=== PATIENT | male | born 1995 | race Caucasian/White ===

== ENCOUNTER 2019-03-19 19:09 | Inpatient (IN) | payer MEDICAID, SELFPAY ==
[2019-03-19] VITALS (9 sets, daily range): BP systolic 124–158; BP diastolic 70–86; PULSE 94–104; RESP 14–16; TEMP 37; O2SAT 96–99
--- NOTE | 2019-03-19 19:31 | CTR_ITS ---
PROCEDURE INFORMATION: Exam: CT Head Without Contrast Exam date and time: 03/19/2019 7:33 PM Age: 23 years old Clinical indication: Altered mental status/memory loss; Confusion or disorientation; Additional info: Ms change TECHNIQUE: Imaging protocol: Computed tomography of the head without contrast. Total DLP: 895.6 mGy-cm Radiation optimization: All CT scans at this facility use at least one of these dose optimization techniques: automated exposure control; mA and/or kV adjustment per patient size (includes targeted exams where dose is matched to clinical indication); or iterative reconstruction. COMPARISON: CT head wo con* [id number] 02/19/2018 7:50 PM FINDINGS: Brain: Normal. No hemorrhage. Unremarkable white matter. No mass effect. Ventricles: Normal. No ventriculomegaly. Bones/joints: Unremarkable. No acute fracture. Sinuses: Visualized sinuses are unremarkable. No fluid levels. Mastoid air cells: Visualized mastoid air cells are well aerated. Soft tissues: Unremarkable. CT/CT head wo con* [id number] IMPRESSION: No acute intracranial abnormality. Radiation Dose CTDIVOL = (mGy): DLP = 895.6 (mGy-cm)
--- NOTE | 2019-03-19 19:35 | ED_ITS ---
Entered by Deisy Godoy, acting as scribe for HPI - Psych General: Chief Complaint: Psychiatric Symptoms Stated Complaint: 96 hour hold Time Seen by Provider: 03/19/19 19:31 Source: police ([facility]) Mode of arrival: other ([facility]) History of Present Illness: HPI Narrative: 23 yo m came to the er in by [facility]'s office in handcuffs on a 96-hour hold. He was obviously intoxicated, on some sort of substance, and had evidently made suicidal statements, and threatened violence on his family. He presents agitated, not making sense while speaking, and somewhat combative. Review of Systems General: Reports: ROS unobtainable due to mental status PFSH ED PFSH: Statuses (acute, chronic, etc) shown below reflect problem list status as previously entered and may not be historically accurate Medical History (Updated 03/19/19 @ 22:53 by Ashwin Healy MD) Adjustment disorder (Acute) Depression (Acute) Fracture, ankle (Acute) Homicidal ideation (Acute) Incarceration (Acute) Methamphetamine abuse (Acute) Multiple head injury (Acute) Schizophrenia (Acute) Surgical History (Updated 03/19/19 @ 22:53 by Ashwin Healy MD) Hx of tonsillectomy (Acute) Family History (Updated 03/19/19 @ 22:53 by Ashwin Healy MD) Denies family history of Psychiatric illness Physical Exam Const: COMMON NORMALS: healthy appearing and alert EXAM LIMITATIONS: altered mental status GENERAL APPEARANCE: disheveled ORIENTATION/CONSCI OUSNESS: Yes awake and Yes confused HENMT: COMMON NORMALS: normocephalic, external ears normal and external nose normal; oral mucous membranes not moist HEAD & SCALP: normocephalic FACE & SINUS: normal facial exam NOSE: external nose normal EXTERNAL EAR: Yes external ears normal Eye: COMMON NORMALS: PERRL, EOMs intact bilaterally and conjunctivae normal CONJUNCTIVA: Yes conjunctivae normal PUPIL: Yes PERRL Chest: COMMONS NORMALS: inspection of chest normal Resp: COMMON NORMALS: clear to auscultation bilaterally EFFORT & INSPECTION: No respiratory distress AUSCULTATION: clear to auscultation bilaterally Cardio: COMMON NORMALS: regular rhythm and peripheral pulses 2+ throughout RATE: tachycardic RHYTHM: regular rhythm PERIPHERAL PULSES: pulses 2+ throughout GI: COMMON NORMALS: soft to palpation PALPATION: Yes soft Extremity: NARRATIVE EXTREMITY EXAM: No apparent injury Neuro: COMMON NORMALS: CN's II-XII intact bilaterally and moves all extremities SENSORIUM/ORIENTATION: Yes alert and Yes orientation impaired SPEECH: abnormal speech Details: other (Nonsensical at times) GAIT: Yes ataxic Procedures Intubation Time out performed: Yes sedative: Versed paralytic: Vecuronium Laryngoscope: Marck ET Tube Size: 8 Tube Secured Depth (cm): 24 Tube Secured Location: lips Tube Placement Confirmation: visualized tube passing through cords, equal breath sounds bilaterally and confirmation by capnometry Patient Tolerated Procedure: well Intubation Complications: none MDM - Psych Lab Data: Labs: Lab Results 03/19/19 03/19/19 03/19/19 Range/Units 20:35 20:35 20:35 WBC 4.5 (4.0-10.0) 10^3/ uL RBC 4.63 (4.1-5.3) 10^6/u L Hgb 13.6 (11.7-16.6) g/dL Hct 41.2 L (42.0-52.0) % MCV 89.0 (80-94) fL MCH 29.4 (28.0-34.0) pg MCHC 33.0 (30.0-36.0) g/dL RDW 11.8 L (12.1-15.1) % Plt Count 234 (130-400) 10^3/c mm MPV 9.4 (7.4-10.4) fL Neut % (Auto) 73.4 % Lymph % (Auto) 19.1 % Mitchell % (Auto) 6.9 % Eos % (Auto) 0.2 % Baso % (Auto) 0.4 % Neut # (Auto) 3.3 (1.8-7.7) 10^3/u L Lymph # (Auto) 0.9 (0.8-4.8) 10^3/u L Mitchell # (Auto) 0.3 (0.2-0.9) 10^3/u L Eos # (Auto) 0.0 (0.0-0.8) 10^3/u L Baso # (Auto) 0.0 (0.0-0.1) 10^3/u L Nucleated RBC % (a uto) 0 % Nucleated RBCs # 0.0 /100WBC Sodium 141 (136-145) mmol/L Potassium 3.3 L (3.5-5.1) mmol/L Chloride 103 (98-107) mmol/L Carbon Dioxide 25 (22-29) mmol/L Anion Gap 16.3 (5-19) BUN 15 (6-20) mg/dL Creatinine 1.2 (0.7-1.2) mg/dL GFR Calculation 74.4 L (90-130) mL/min Glucose 205 H (74-109) mg/dL Calcium 9.6 (8.5-10.5) mg/dL Total Bilirubin 0.4 (0.15-1.2) mg/dL AST 17 (0-40) U/L ALT 19 (0-41) U/L Alkaline Phosphata se 66 (40-130) IU/L Total Protein 6.8 (6.6-8.7) g/dL Albumin 4.5 (3.5-5.2) g/dL Globulin 2.3 (1.3-4.6) g/dL TSH 0.53 (0.27-4.20) uIU/ mL Urine Color (Yellow) Urine Appearance (CLEAR) Urine pH (5-7) Ur Specific Gravit y (1.005-1.030) Urine Protein (Negative) Urine Glucose (UA) (Normal) Urine Ketones (Negative) Urine Occult Blood (Negative) Urine Nitrate (Negative) Urine Bilirubin (NEGATIVE) Urine Urobilinogen (Negative) mg/dL Ur Leukocyte Anay ase (Negative) Salicylates < 0.3 L (3-10) mg/dL Urine Opiates Scre en (Negative) ng/mL Ur Barbiturates Sc reen (Negative) ng/mL Valproic Acid 2.8 L (50-100) mcg/mL Ur Phencyclidine S crn (Negative) ng/mL Ur Amphetamines Sc reen (Negative) ng/mL U Benzodiazepines Scrn (Negative) ng/mL Urine Cocaine Scre en (Negative) ng/mL U Marijuana (THC) Screen (Negative) ng/mL Ethyl Alcohol < 10 (0-10) mg/dL 03/19/19 03/19/19 Range/Units 22:40 22:40 WBC (4.0-10.0) 10^3/ uL RBC (4.1-5.3) 10^6/u L Hgb (11.7-16.6) g/dL Hct (42.0-52.0) % MCV (80-94) fL MCH (28.0-34.0) pg MCHC (30.0-36.0) g/dL RDW (12.1-15.1) % Plt Count (130-400) 10^3/c mm MPV (7.4-10.4) fL Neut % (Auto) % Lymph % (Auto) % Mitchell % (Auto) % Eos % (Auto) % Baso % (Auto) % Neut # (Auto) (1.8-7.7) 10^3/u L Lymph # (Auto) (0.8-4.8) 10^3/u L Mitchell # (Auto) (0.2-0.9) 10^3/u L Eos # (Auto) (0.0-0.8) 10^3/u L Baso # (Auto) (0.0-0.1) 10^3/u L Nucleated RBC % (a uto) % Nucleated RBCs # /100WBC Sodium (136-145) mmol/L Potassium (3.5-5.1) mmol/L Chloride (98-107) mmol/L Carbon Dioxide (22-29) mmol/L Anion Gap (5-19) BUN (6-20) mg/dL Creatinine (0.7-1.2) mg/dL GFR Calculation (90-130) mL/min Glucose (74-109) mg/dL Calcium (8.5-10.5) mg/dL Total Bilirubin (0.15-1.2) mg/dL AST (0-40) U/L ALT (0-41) U/L Alkaline Phosphata se (40-130) IU/L Total Protein (6.6-8.7) g/dL Albumin (3.5-5.2) g/dL Globulin (1.3-4.6) g/dL TSH (0.27-4.20) uIU/ mL Urine Color Yellow (Yellow) Urine Appearance Clear (CLEAR) Urine pH 5 (5-7) Ur Specific Gravit y 1.025 (1.005-1.030) Urine Protein Neg (Negative) Urine Glucose (UA) Norm (Normal) Urine Ketones Negative (Negative) Urine Occult Blood Neg (Negative) Urine Nitrate Negative (Negative) Urine Bilirubin 1+ H (NEGATIVE) Urine Urobilinogen 1 H (Negative) mg/dL Ur Leukocyte Anay ase Negative (Negative) Salicylates (3-10) mg/dL Urine Opiates Scre en Negative (Negative) ng/mL Ur Barbiturates Sc reen Negative (Negative) ng/mL Valproic Acid (50-100) mcg/mL Ur Phencyclidine S crn Negative (Negative) ng/mL Ur Amphetamines Sc reen Negative (Negative) ng/mL U Benzodiazepines Scrn Negative (Negative) ng/mL Urine Cocaine Scre en Negative (Negative) ng/mL U Marijuana (THC) Screen Negative (Negative) ng/mL Ethyl Alcohol (0-10) mg/dL Critical Care Time Critical Care Time: Critical Care Time: Yes Total Critical Care Time: 90 Attestation: This case had a high probability of a clinically significant, sudden, or life threatening deterioration of this patient's condition which required my full and direct attention, intervention and personal management. Discharge Plan Discharge Patient Disposition: Admitted As Inpatient Admit Provider: Ashwin Healy Discharge Date/Time: 03/19/19 23:40 Coding Level of Care Code ED Test Hole Driller for Hao Black The documentation recorded by the Walt luis Stephanie Lyn, accurately reflects the service I personally performed and the decisions made by , Primo Castillo DO Mar 19, 2019 19:09
[2019-03-19] MEDS: LORazepam 2 mg/mL INJ 1 mL IM (20:05)
[2019-03-19] MEDS: ziprasidone 20 mg/mL SDV IM (20:10)
[2019-03-19] MEDS: ziprasidone 20 mg/mL SDV (20:10)
[2019-03-19] MEDS: ketamine 100 mg/mL Inj 5 mL 500 MG (20:10)
[2019-03-19] MEDS: ketamine 100 mg/mL Inj 5 mL 200 MG IM (20:29)
[2019-03-19 20:58] LABS: Basophils % 0.4 %; Eosinophils % 0.2 %; Hematocrit 41.2 % (42.0-52.0); Hemoglobin 13.6 g/dL (11.7-16.6); Lymphocytes # 0.9 10^3/uL (0.8-4.8); Lymphocytes % 19.1 %; Mean Corpuscular Hemoglobin 29.4 pg (28.0-34.0); Mean Platelet Volume 9.4 fL (7.4-10.4); Monocytes # 0.3 10^3/uL (0.2-0.9); Monocytes % 6.9 %; Neutrophils # 3.3 10^3/uL (1.8-7.7); Neutrophils % 73.4 %; Nucleated Red Blood Cells % 0 %; Platelet Count 234 10^3/cmm (130-400); Red Blood Count 4.63 10^6/uL (4.1-5.3); Red Cell Distribution Width 11.8 % (12.1-15.1); White Blood Count 4.5 10^3/uL (4.0-10.0)
[2019-03-19 21:22] LABS: Alanine Aminotransferase 19 U/L (0-41); Albumin Level 4.5 g/dL (3.5-5.2); Alkaline Phosphatase 66 IU/L (40-130); Anion Gap 16.3 (5-19); Aspartate Amino Transferase 17 U/L (0-40); Blood Urea Nitrogen 15 mg/dL (6-20); Calcium 9.6 mg/dL (8.5-10.5); Carbon Dioxide 25 mmol/L (22-29); Chloride 103 mmol/L (98-107); Globulin 2.3 g/dL (1.3-4.6); Glomerular Filtration Rate 74.4 mL/min (90-130); Glucose 205 mg/dL (74-109); Potassium 3.3 mmol/L (3.5-5.1); Sodium 141 mmol/L (136-145); Thyroid Stimulating Hormone 0.53 uIU/mL (0.27-4.20); Total Bilirubin 0.4 mg/dL (0.15-1.2); Total Protein 6.8 g/dL (6.6-8.7)
[2019-03-19 21:23] LABS: Alcohol Level < 10 mg/dL (0-10); Salicylate < 0.3 mg/dL (3-10)
[2019-03-19] MEDS: midazolam 1 mg/mL INJ 2 mL 4 MG IVP (21:30)
[2019-03-19] MEDS: vecuronium 10 mg SDV IV ×2 (21:31→22:46)
[2019-03-19] MEDS: succinylcholine 20 mg/mL SDV 10mL 200 MG IVP (21:31)
[2019-03-19] MEDS: propofol 1,000 MG/100 ML INJ 7 MG IV (22:15)
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
[2019-03-19 23:07] LABS: Add Urine Microscopic? NO
[2019-03-19 23:12] LABS: Bilirubin Urine 1+ (NEGATIVE); Blood Urine Neg (Negative); Glucose Urine UA Norm (Normal); Ketones Urine Negative (Negative); Leukocyte Esterase Urine Negative (Negative); Nitrate Urine Negative (Negative); Protein Urine Neg (Negative); Specific Gravity, Urine 1.025 (1.005-1.030); Urine Appearance Clear (CLEAR); Urine Color Yellow (Yellow); Urobilinogen Urine 1 mg/dL (Negative); pH Urine 5 (5-7)
[2019-03-19 23:17] LABS: Amphetamines Screen Urine Negative (Negative); Barbiturates Screen Urine Negative (Negative); Benzodiazepines Screen Urine Negative (Negative); Cocaine Screen Urine Negative (Negative); Opiate Screen Urine Negative (Negative); PCP Screen Urine Negative (Negative); THC Screen Urine Negative (Negative)
[2019-03-19] MEDS: sodium chloride 0.9% 1,000 ML 150 ML IV (23:56)
[2019-03-20] VITALS (79 sets, daily range): BP systolic 95–139; BP diastolic 46–77; PULSE 59–131; RESP 11–18; TEMP 36.9–37.4; O2SAT 73–99; BMI 30.6
[2019-03-20] MEDS: propofol 1,000 MG/100 ML INJ 27.2 MG IV ×5 (00:15→21:19)
[2019-03-20] MEDS: enoxaparin 40 mg/0.4 mL Syringe SUBCUT ×2 (00:23→23:26)
[2019-03-20] MEDS: D5-NS 0.45% + KCL 20 mEq 20 MEQ/1,000 ML BAG 75 MEQ IV (00:23)
[2019-03-20 00:40] LABS: Valproic Acid Level 2.8 mcg/mL (50-100)
--- NOTE | 2019-03-20 03:34 | PC.NURSE ---
PATIENT BELONGINGS PAIR OF HOUSE SHOES LONGSLEEVE SHIRT PAJAMA PANTS UNDERWEAR DEODERANT SWEATER SHORT SLEEVE SHIRT UNDERWEAR PAJAMA PANTS ONE SOCK
[2019-03-20 04:21] LABS: Basophils % 0.4 %; Eosinophils % 0.3 %; Hematocrit 38.3 % (42.0-52.0); Hemoglobin 12.8 g/dL (11.7-16.6); Lymphocytes # 2.3 10^3/uL (0.8-4.8); Lymphocytes % 29.4 %; Mean Corpuscular HGB Conc 33.4 g/dL (30.0-36.0); Mean Corpuscular Volume 92.7 fL (80-94); Mean Platelet Volume 9.6 fL (7.4-10.4); Monocytes # 0.5 10^3/uL (0.2-0.9); Monocytes % 6.5 %; Neutrophils # 4.9 10^3/uL (1.8-7.7); Neutrophils % 63.3 %; Nucleated Red Blood Cells % 0 %; Platelet Count 244 10^3/cmm (130-400); Red Blood Count 4.13 10^6/uL (4.1-5.3); White Blood Count 7.8 10^3/uL (4.0-10.0)
[2019-03-20 04:35] LABS: Alanine Aminotransferase 17 U/L (0-41); Albumin Level 3.7 g/dL (3.5-5.2); Alkaline Phosphatase 53 IU/L (40-130); Anion Gap 14.4 (5-19); Aspartate Amino Transferase 20 U/L (0-40); Blood Urea Nitrogen 12 mg/dL (6-20); Carbon Dioxide 24 mmol/L (22-29); Chloride 108 mmol/L (98-107); Globulin 2.1 g/dL (1.3-4.6); Glomerular Filtration Rate 91.8 mL/min (90-130); Glucose 108 mg/dL (74-109); Potassium 3.4 mmol/L (3.5-5.1); Sodium 143 mmol/L (136-145); Total Bilirubin 0.5 mg/dL (0.15-1.2); Total Protein 5.8 g/dL (6.6-8.7)
--- NOTE | 2019-03-20 04:44 | XRR_ITS ---
PROCEDURE INFORMATION: Exam: XR Chest, 1 View Exam date and time: 03/20/2019 5:04 AM Age: 23 years old Clinical indication: Device placement; Ett placement (vent status); Additional info: Intubation TECHNIQUE: Imaging protocol: XR of the chest Views: 1 view. COMPARISON: No relevant prior studies available. FINDINGS: Tubes, catheters and devices: Three images labeled #1, #2 and #3 obtained showing positioning of the tip of the ET tube from 3.1 cm to 4.6 cm from the davina. Positioning of the end of the enteric tube in the lateral aspect of the proximal stomach following a mild loop in the fundus on all the images. Lungs: Clear lungs on all the images. Pleural space: No pleural fluid or pneumothorax. Heart/Mediastinum: No cardiomegaly. Bones/joints: Unremarkable. XR/XR chest 1V portable [id number] IMPRESSION: 1. Adequate positioning of the endotracheal and enteric tubes on all 3 images. 2. No acute cardiopulmonary disease.
--- NOTE | 2019-03-20 07:04 | PC.NURSE ---
SHIFT SUMMARY PT HAS BEEN SEDATED SINCE ARRIVAL FROM ER. FENTANYL WAS STARTED DUE TO PT STARTING TO THRASH IN BED. PT LUNGS REMAIN CLEAR. PT HAS BEEN TURNED PERIODICALLY. PT HAS PATENT IVS. PT HAS HAD ADEQUATE URINE OUTPUT.
--- NOTE | 2019-03-20 07:23 | PM.PN ---
Subjective Subjective: Interval history: Strain physical reviewed in detail. Patient is currently sedated on the ventilator. Medications: Reviewed: Yes Vitals/I&O/Wt Last Vital Signs Temp 98.4 F 03/20/19 04:00 Pulse 77 03/20/19 06:00 Resp 14 03/20/19 06:04 BP 96/51 03/20/19 06:00 Pulse Ox 97 03/20/19 06:00 03/19/19 03/20/19 03/20/19 22:59 06:59 14:59 Intake Total 177.5 / 177.5 Output Total 400 / 400 Balance -222.5 / -222.5 Weight last 48 hrs Weight 96.887 kg Weight 90.718 kg Physical Exam Narrative: EXAM NARRATIVE: General exam demonstrates a white male, sedated and on the ventilator Cardiovascular regular rate and rhythm without murmur Lungs clear Abdomen is soft with positive bowel sounds Extremities no cyanosis clubbing or edema Urinary Catheter Management^: Mina: Cath Placed During This Visit: no Data : 03/20/19 03:34 03/20/19 03:34 A&P Assessment and plan (1) Delirium due to multiple etiologies, acute, hyperactive: Likely substance use but cannot rule out his schizophrenia with decompensation. Sedation currently with fentanyl, propofol Status: Acute Code(s): F05 - Delirium due to known physiological condition (2) Suicidal ideation: Psychiatric consultation. Currently on a 96-hour hold Status: Acute Code(s): R45.851 - Suicidal ideations Additional A&P Information Secondary to severe agitation and threat to people around him he was intubated and sedated in the emergency department Mild hypokalemia History of polysubstance use DVT prophylaxis with Lovenox Attestations Medical Necessity Statement*: Needs continued hospitalization in the ICU secondary to severe delirium and agitation requiring intubation and sedation Critical Care Time: ICU care spent in reviewing multiple films, ventilator settings, sedation IV secondary to severe agitation requiring elevation Critical Care Time (min): 31 Coding Level of Care Code Acute Clothing Pattern Preparer for Hao Black Diagnoses Delirium due to multiple etiologies, acute, hyperactive F05 Suicidal ideation R45.851
[2019-03-20] MEDS: potassium chloride oral liq 20 mEq/15 mL UDC 40 MEQ OG-TUBE (08:25)
[2019-03-20] MEDS: folic acid 1 mg Tablet PO (08:25)
[2019-03-20] MEDS: multivitamin therapeutic Tablet 1 TAB PO (08:25)
[2019-03-20] MEDS: thiamine 100 mg Tablet PO (08:25)
[2019-03-20 16:19] LABS: ABG PCO2 38.4 mmHg (35-45); ABG PH Result 7.45 (7.35-7.45); Arterial Blood Gas Hematocrit 40.2 % (42-52); Base Excess ABG 2.6 mmol/L (-2.0-2.0); Blood Gas Allen Test Pos; Blood Gas Sample Site Radial, right; Blood Gas Sample Type Arterial; Blood Gas Tidal Volume 0.55; HCO3 ABG 26.7 mmol/L (22-26); Oxygen Device VENT
--- NOTE | 2019-03-20 20:30 | PC.NURSE ---
Valproic Acid Unable to crush Depakote ER tablets to place down OG. Checked with pharmacy for syrup and reports syrup is out of stock. Non-administered night dose.
[2019-03-20] MEDS: haloperidol 1 mg Tablet PO (21:09)
[2019-03-20] MEDS: trazodone 50 mg Tablet PO (21:25)
--- NOTE | 2019-03-20 22:40 | PC.NURSE ---
Pt at max dose of fentanyl and propofol. Kicking legs off side of bed, sitting up in bed attempting to pull out ET tube. Continues to bang arms on siderails of bed. Attempted calming techniques, discussion, reorientation and redirection. Nurse at bedside to prevent extubation and keep patient safe. Received orders for Versed drip by Dr. Healy.
[2019-03-21] VITALS (55 sets, daily range): BP systolic 101–146; BP diastolic 43–99; PULSE 79–115; RESP 14–31; TEMP 37.9–39.3; O2SAT 96–100
[2019-03-21] MEDS: propofol 1,000 MG/100 ML INJ 27.2 MG IV (00:15)
[2019-03-21] MEDS: LORazepam 2 mg/mL INJ 1 mL IVP (01:19)
--- NOTE | 2019-03-21 01:19 | XRR_ITS ---
PROCEDURE INFORMATION: Exam: XR Chest, 1 View Exam date and time: 03/21/2019 2:27 AM Age: 23 years old Clinical indication: Fever; Additional info: Fever while intubation TECHNIQUE: Imaging protocol: XR of the chest Views: 1 view. COMPARISON: CR XR chest 1V portable [id number] 03/20/2019 4:46 AM FINDINGS: Tubes, catheters and devices: Endotracheal tube above the davina adjacent to the level of the clavicles. nasogastric tube extends below the diaphragm although the location of the tip not identified as it is outside of the [id number]. Lungs: Opacity right retrocardiac region. Likely mild atelectasis. Followup suggested. Pleural space: Unremarkable. No pleural effusion. No pneumothorax. Heart/Mediastinum: Unremarkable. No cardiomegaly. Bones/joints: Unremarkable. XR/XR chest 1V portable [id number] IMPRESSION: Opacity right retrocardiac region. Likely mild atelectasis. Followup suggested.
[2019-03-21] MEDS: acetaminophen 650 mg Supp PR ×2 (01:20→05:37)
--- NOTE | 2019-03-21 01:22 | CTR_ITS ---
PROCEDURE INFORMATION: Exam: CT Head Without Contrast Exam date and time: 03/21/2019 7:37 AM Age: 23 years old Clinical indication: Patient HX: Possible seizure activity. Intubated. Manual ventilation. ; Additional info: Seizures TECHNIQUE: Imaging protocol: Computed tomography of the head without contrast. Total DLP: 886.27 mGy-cm Radiation optimization: All CT scans at this facility use at least one of these dose optimization techniques: automated exposure control; mA and/or kV adjustment per patient size (includes targeted exams where dose is matched to clinical indication); or iterative reconstruction. COMPARISON: CT head wo con* [id number] 03/19/2019 10:25 PM FINDINGS: Brain: Normal. No hemorrhage. Unremarkable white matter. No mass effect. Ventricles: Normal. No ventriculomegaly. Bones/joints: Unremarkable. No acute fracture. Sinuses: Visualized sinuses are unremarkable. No fluid levels. Mastoid air cells: Visualized mastoid air cells are well aerated. Soft tissues: Unremarkable. CT/CT head wo con* [id number] IMPRESSION: No acute intracranial abnormality. Radiation Dose CTDIVOL = (mGy): DLP = 886.27 (mGy-cm)
--- NOTE | 2019-03-21 02:17 | PC.NURSE ---
Physician had suspected symptoms displaying malignant hyperthermia. After contacting the hotline, physician now suspects propofol infusion syndrome and propofol was discontinued immediately. Received orders allowing titration above max limits of fentanyl and versed per protocol. Pt resting in bed sedated and on continues to be on ventilator without tremors of muscle rigidity. HR at baseline in the 80's. Continuous rectal temp monitor is now in place and 102.7. Ice water lavage preformed via OG tube at this time, cold clothes placed on patient. Urine is dark green.
[2019-03-21 02:29] LABS: Anion Gap 15.2 (5-19); Blood Urea Nitrogen 11 mg/dL (6-20); Calcium 8.7 mg/dL (8.5-10.5); Carbon Dioxide 23 mmol/L (22-29); Chloride 106 mmol/L (98-107); Glomerular Filtration Rate 103.7 mL/min (90-130); Glucose 102 mg/dL (74-109); Osmolality Calculated 286 mOsm/kg (285-295); Potassium 4.2 mmol/L (3.5-5.1); Sodium 140 mmol/L (136-145)
[2019-03-21 02:30] LABS: Lactic Acid 2.2 mmol/L (0.5-2.2)
--- NOTE | 2019-03-21 02:33 | ECG_ITS ---
Measurements Intervals T[place]o Rate: 90 P: 68 MS: 154 QRS: 82 QRSD: 84 T: 77 QT: 359 QTc: 439 SINUS RHYTHM Compared to ECG 02/19/2018 18:45:46 No significant changes Electronically Signed On 03-21-2019 15:43:25 OIL TREATER by Peter Daniel M.D. [email or web address]
[2019-03-21 02:37] LABS: ABG PH Result 7.42 (7.35-7.45); Arterial Blood Gas Hematocrit 39.4 % (42-52); Base Excess ABG 0.5 mmol/L (-2.0-2.0); Blood Gas Allen Test Pos; Blood Gas Sample Site Radial, right; Blood Gas Sample Type Arterial; Blood Gas Tidal Volume 0.55; Oxygen Device VENT; PO2 ABG 76.6 mmHg (80.0-100.0)
[2019-03-21 02:45] LABS: Creatine Phosphokinase 352 U/L (39-308)
--- NOTE | 2019-03-21 03:06 | PC.NURSE ---
At 0100 Pt sitting up in bed hand on ET tube, followed by kicking legs and biting tube at this time. Pt HR had accelerated to 190 during episode and shortly after returned to baseline. Pt is above hard limits on sedation per protocol. Pt temp found to be 102.8 axillary. After episode pt was calm lying still and noticed new onset of synchronized tremors or arms and legs and jaw which lasted briefly, a couple episodes observed and resembled hard chills. Physician was called for update and came to floor.
--- NOTE | 2019-03-21 03:33 | PM.EVENT ---
Event Note Event Note: I was called by the ICU nurse for agitation When I went to examine him Patient was having myoclonic limb jerking, masseter twitching, heart rate initially was 170s narrow complex tachycardia which came down to 100 on increasing Versed drip and 2 mg of Ativan IV Blood pressure 110/60mmhg Fever 102 which came down to 101.6 which were checked rectally Patient had good bilateral breath sounds, no active rhonchi His myoclonic jerking stopped after increasing midazolam and propofol and getting 2 mg of Ativan Skin does not show any signs of cellulitis Urine color green I reviewed his blood work, CT scan, chest imaging No obvious source of infection Plan Concern for malignant hyperthermia versus propofol infusion syndrome He received succinylcholine for induction but that was 24 hours ago, he has only received 1 dose of Haldol We will check CPK, BMP for hyperkalemia, lactic acid, blood cultures, urine culture, CT head Hold propofol Discontinue Haldol Keppra loading dose 1000 mg and continue Keppra 1000 every 12 IV If he becomes bradycardic with hypotension with severe acidosis, concerning propofol infusion syndrome he might need hemodialysis For now his blood pressure is stable, his fever is coming down, heart rate is better, will keep Levophed at the bedside, I called malignant hyperthermia hotline as well they recommended against dantrolene and recommended watching for propofol infusion syndrome worsening On portable chest x-ray there is bilateral lymphadenopathy with slight increase of right homogenous opacity of right side I would cover him with Zosyn for aspiration pneumonia for now
[2019-03-21] MEDS: piperacillin-tazobactam 3.375 GM in sodium chloride 0.9% (plus) 50 ML IV ×3 (03:47→20:18)
[2019-03-21] MEDS: D5-NS 0.45% + KCL 20 mEq 20 MEQ/1,000 ML BAG 75 MEQ IV ×2 (03:47→17:48)
[2019-03-21 05:01] LABS: Basophils % 0.1 %; Eosinophils % 0.2 %; Hematocrit 41.7 % (42.0-52.0); Hemoglobin 13.4 g/dL (11.7-16.6); Lymphocytes % 10.4 %; Mean Corpuscular HGB Conc 32.1 g/dL (30.0-36.0); Mean Corpuscular Hemoglobin 31.1 pg (28.0-34.0); Mean Corpuscular Volume 96.8 fL (80-94); Mean Platelet Volume 9.6 fL (7.4-10.4); Monocytes # 0.6 10^3/uL (0.2-0.9); Neutrophils % 83.1 %; Nucleated Red Blood Cells % 0 %; Platelet Count 192 10^3/cmm (130-400); Red Blood Count 4.31 10^6/uL (4.1-5.3); Red Cell Distribution Width 12.1 % (12.1-15.1); White Blood Count 9.6 10^3/uL (4.0-10.0)
[2019-03-21 05:37] LABS: Anion Gap 14.7 (5-19); Blood Urea Nitrogen 12 mg/dL (6-20); Calcium 8.9 mg/dL (8.5-10.5); Carbon Dioxide 22 mmol/L (22-29); Chloride 106 mmol/L (98-107); Glomerular Filtration Rate 82.2 mL/min (90-130); Glucose 102 mg/dL (74-109); Osmolality Calculated 284 mOsm/kg (285-295); Potassium 3.7 mmol/L (3.5-5.1); Sodium 139 mmol/L (136-145)
[2019-03-21] MEDS: folic acid 1 mg Tablet PO (09:41)
[2019-03-21] MEDS: multivitamin therapeutic Tablet 1 TAB PO (09:41)
[2019-03-21] MEDS: thiamine 100 mg Tablet PO (09:41)
--- NOTE | 2019-03-21 10:29 | PC.NURSE ---
weaning off fentynl and started on precedex at this time for weaning off vent and awaking pt to assess
--- NOTE | 2019-03-21 11:40 | PC.CHAP ---
Pastoral Care Encounter/Spiritual Assessment Type of Contact [] Declined resource management planner visit [] Patient/Family/Request visit [] Outpatient visit [] Follow-up visit [] Physician referral [] Code/Alert [] Routine visit [] Staff referral [] Actively dying [] Patient sleeping [] Family support [] [] Out of room [] Palliative care [] [] Receiving care in room [] Pre-surgical visit [] Trauma [] Long length of stay [] ICU visit [x ] Other: see summary Relational/Emotional Strength [] Patient feels connected with others/family/visitors/staff [] Distress [] Loneliness/isolation [] Abandonment Spirituality of Patient [] Person of Fabiana [] Attends Anabaptist of their Fabiana [] Believes in Prayer [] Reads Bible or Zoroastrian materials [] There are Spiritual issues to be addressed Health Claims Examiner Interventions [] Prayer [] Active listening [] Non-anxious presence [] Spiritual/emotional support [] Crisis/trauma care [] Spiritual counseling [] Bereavement support [] Provided bereavement packet [] Provided Bible/devotional materials [] Provided toy/stuffed animal, coloring book to patient or family member [] Provided Communion [] Anointing/[place] [] Salvation [] Completed spiritual assessment [] Other: Impact on Illness or Injury [] Angry [] Fearful [] Anxious [] Often cries [] Exhaustion [] Unable to work [] Unable to attend episcopalian [] Unable to walk/stand [] Unable to read [] Unable to drive [] Unable to eat/drink [] Unable to sleep [] Unable to be with family [] Patient intubated [] Other: Summary Health Claims Examiner advised by staff not to visit pt. He is on vent, Health Claims Examiner prayed outside of room. Time spent with patient 5 min.
--- NOTE | 2019-03-21 13:51 | PC.RESP ---
extubated pt extubated to room air, tolerated well
--- NOTE | 2019-03-21 14:49 | P.PN_ITS ---
Subjective Subjective: Interval history: Late entry. Unfortunately I did not enter a progress note yesterday although I saw him evaluated him and made medical decisions. Yesterday he was on the vent early in the morning, on sedation. Medications: Reviewed: Yes Vitals/I&O/Wt Last Vital Signs Temp 99.4 F 03/22/19 11:48 Pulse 90 03/22/19 14:00 Resp 20 H 03/22/19 14:00 BP 144/76 03/22/19 14:00 Pulse Ox 99 03/22/19 12:00 03/21/19 03/22/19 03/22/19 22:59 06:59 14:59 Intake Total 2460 / 2564 50 / 2614 1504 / 1504 Output Total 2800 / 2800 900 / 900 Balance 2460 / 2564 -2750 / -186 604 / 604 Weight last 48 hrs Weight 98.974 kg Weight 96.57 kg Physical Exam Narrative: EXAM NARRATIVE: General exam, sedated on the vent Cardiovascular regular in rhythm Lungs clear Abdomen is soft, positive bowel sounds Extremities no cyanosis clubbing or edema Urinary Catheter Management^: Mina: Cath Placed During This Visit: no Data : 03/22/19 04:07 03/22/19 04:07 Micro: Microbiology 03/21/19 03:50 Gram Stain - Final Sputum - Endotracheal Tube Aspirate Sputum Culture - Preliminary Staphylococcus aureus 03/21/19 02:30 Urine Culture - Preliminary Urine Catheterized 03/21/19 01:57 Blood Culture - Preliminary Blood NEGATIVE TO DATE 03/21/19 01:58 Blood Culture - Preliminary Blood NEGATIVE TO DATE A&P Assessment and plan (1) Delirium due to multiple etiologies, acute, hyperactive: Decompensated schizophrenia. Currently stable on Ativan, Precedex. Status: Acute Code(s): F05 - Delirium due to known physiological condition (2) Suicidal ideation: Psychiatric consultation. Currently on a 96-hour hold Status: Acute Code(s): R45.851 - Suicidal ideations Additional A&P Information Fever. Concern regarding aspiration. Placed on Zosyn. Chest x-ray did not show infiltrate. Urinalysis negative. 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
--- NOTE | 2019-03-21 14:56 | PC.NURSE ---
wasted fentyl and versed listed under iv flow sheet
--- NOTE | 2019-03-21 14:57 | PC.NURSE ---
This nurse witness Fentanyl snd versed wasted by Juan RN.
--- NOTE | 2019-03-21 15:31 | P.CONIM_ITS ---
Providers/Reason for Consult Consulting Physican/Specialty*: Vivek Winter M.D.. Psychiatry. Reason for Consult*: 96 hour hold. Question of psychosis and lethality. Attending Physician: Dane Lambert MD Primary Care Provider: Al Rincon Psych Consult HPI History of Present Illness Arnel Jeffries is a 23 year old male who presents to the ICU secondary to mental status changes and concerns for psychosis and lethality. He is currently fairly lethargic and unable to make a clear conversation. He is mostly saying [id number] statements like stating that this commercial underwriter is God, saying that he needs to get back to his God, reporting that he can't return to his family b ecause they are not who he thinks they are. He reports that they were several different God. He initially stated that he wanted to make sure everyone was out in the room and may be close the door but then once I did that there was nothing of real significance that he said but he clearly thought that his statements were of significance. I talked to him about the possibility of coming down to the neuropsych unit and he reported that he felt he was fine while he is clearly in an altered mental state. I did have the opportunity to speak to his mother and she shared with me that he has had a long history of addiction particularly the methamphetamine and he was about 15 years old on and off. She reports that he has not had any drugs to her knowledge over the past 3 weeks because he had been in alf and she picked him up from alf and he's been at the house mostly functioning like he is now such that he could not leave or do anything independently. So she feels fairly confident that he has not had any drugs. She endorses that he had a hospitalization here at [facility] back in April of last year and that he only took the medication for short period of time. She reports that since then he's been off of the medication. She reports that he has done well on the Depakote but she is unsure about other medications. She denies him ever being on Abilify that she is aware of as we discussed the hopeful goal of getting him on an injectable which she had been attempting or trying to get in place for some time without success. Per psychiatric evaluation he had 04/28/2018: History of Present Illness Date of Service: Apr 28, 2018 Chief Complaint: I don't know. I did note to do. I just came here. HPI: HPI: Arnel Jeffries is a 22-year-old man who has had multiple prior hospitalizations at this facility. The patient stated that he was having homicidal thoughts toward his girlfriend. They had gotten into an argument. He refuses to discuss the nature the argument. Records indicate that he had actually been incarcerated after getting into the argument with the girl. He got out of alf and had no place else to go. He complains of anxiety. He complains that he is depressed and having difficulty with eating and sleeping. He denied the presence of hallucinations. He had engaged in no self-defeating or self- injurious behavior. His cognition is impaired as evidenced by his inability to come up with a better plan for self-care than going to the hospital. Allergies: Coded Allergies: NO KNOWN ALLERGIES (Unverified , 07/27/16) Active Meds: Past Medical History Past Medical History: This is his third hospitalization at this facility in 2019. He was hospitalized from February 19 through March 13. He was then hospitalized from March 18 through March 23. He was diagnosed with schizophrenia?chronic, undifferentiated and methamphetamine abuse. He was discharged on Depakote 1000 mg twice a day and Haldol 5 mg twice a day. Review of Systems Psych: Complains of: Anxiety, Depression, Suicide ideation, Anger issues, Other (sirritability and anger to the point of homicidal idea Meds Current Medications: Current Medications Generic Name Dose Route Start Last Admin Trade Name Freq PRN Reason Stop Dose Admin Acetaminophen 650 mg 03/21/19 01:08 03/21/19 05:37 Tylenol GA 650 mg Q4H PRN Administration MILD PAIN OR INCR EASE TEMP Acetaminophen 1,000 mg 03/22/19 03:53 03/22/19 04:01 Tylenol PO 1,000 mg Q6H PRN Administration MILD PAIN OR INCR EASE TEMP Divalproex Sodium 2,000 mg 03/20/19 21:00 03/21/19 19:53 Depakote Er PO 2,000 mg BEDTIME DARIUS Administration Enoxaparin Sodium 40 mg 03/20/19 00:15 03/22/19 00:55 Lovenox SUBCUT Not Given Q24H [facility] Folic Acid 1 mg 03/20/19 09:00 03/21/19 09:41 Folic Acid PO 1 mg DAILY DARIUS Administration Potassium Chloride /Dextrose/Sod Cl 20 meq in 1,000 m ls @ 30 mls/hr 03/20/19 00:15 03/22/19 10:26 D5-Ns 0.45% + Sandip l 20 Meq IV 30 mls/hr .Q24H DARIUS Administration Levetiracetam 1,00 0 mg/ Sodium 110 mls @ 440 mls /hr 03/21/19 01:15 03/22/19 07:03 Chloride IV Infused Q12H DARIUS Infusion Piperacillin Sod/T azobactam 50 mls @ 12.5 mls /hr 03/21/19 04:00 03/22/19 07:03 Sod 3.375 gm/ So dium Chloride IV Infused Q8H DARIUS Infusion Protocol Lorazepam 2 mg 03/20/19 00:08 03/21/19 01:19 Ativan IVP 2 mg PRN PRN Administration WITHDRAWAL Protocol Lorazepam 2 mg 03/20/19 00:08 03/21/19 20:18 Ativan PO 2 mg Q4H PRN Administration WITHDRAWAL Protocol Lorazepam 1 mg 03/21/19 18:44 03/21/19 19:00 Ativan IVP 1 mg Q2H PRN Administration SEIZURES Multivitamins Ther apeutic 1 tab 03/20/19 09:00 03/21/19 09:41 Multivitamin Tab PO 1 tab DAILY DARIUS Administration Thiamine Mononitra te 100 mg 03/20/19 09:00 03/21/19 09:41 Vitamin B-1 PO 100 mg DAILY DARIUS Administration Trazodone HCl 50 mg 03/20/19 21:00 03/21/19 20:18 Desyrel PO 50 mg BEDTIME DARIUS Administration PFSH NPU PFSH: Statuses (acute, chronic, etc) shown below reflect problem list status as previously entered and may not be historically accurate Medical History (Updated 03/19/19 @ 22:53 by Ashwin Healy MD) Adjustment disorder (Acute) Depression (Acute) Fracture, ankle (Acute) Homicidal ideation (Acute) Incarceration (Acute) Methamphetamine abuse (Acute) Multiple head injury (Acute) Schizophrenia (Acute) Surgical History (Updated 03/19/19 @ 22:53 by Ashwin Healy MD) Hx of tonsillectomy (Acute) Family History (Updated 03/19/19 @ 22:53 by Ashwin Healy MD) Denies family history of Psychiatric illness Mental Status Exam MSE Comments: This is overweight and obese white male with a hospital gown on with limited mainly eye contact. No abnormal movements except for extreme psychomotor retardation. Semicooperative with exam in mild distress. Speech was decreased rate and volume and clearly confused most answers. Mood described as okay affect extremely subdued and lethargic. Thought process linear at times but mostly disorganized. Thought content: Patient denied suicidal or homicidal ideations, there were no delusions reportedly clear paranoia, persecutory and possibly hyper gnosticism delusions exist, he denied any auditory or visual hallucinations. Attention and concentration were impaired and memory was unreliable but none were formally tested. He is alert and oriented ?3. Insight and judgment and impulse control are significantly impaired. Vitals/I&O/Wt Last Vital Signs Pulse Ox 96 03/21/19 08:00 temperature 100.4, pulse 96, respirations 25, temperature 129/82. 03/21/19 03/22/19 03/22/19 22:59 06:59 14:59 Intake Total 2460 / 2564 50 / 2614 1504 / 1504 Output Total 2800 / 2800 300 / 300 Balance 2460 / 2564 -2750 / -186 1204 / 1204 Weight last 48 hrs Weight 98.974 kg Weight 96.57 kg Physical Exam Urinary Catheter Management^: Mina: Cath Placed During This Visit: no Data NPU Micro: Micro: Microbiology 03/21/19 03:50 Gram Stain - Final Sputum - Endotrac heal Tube Aspirate Sputum Culture - P reliminary Staphylococcus aureus 03/21/19 02:30 Urine Culture - Pr eliminary Urine Catheterize d 03/21/19 01:57 Blood Culture - Pr eliminary Blood NEGATIVE TO SAMUEL E 03/21/19 01:58 Blood Culture - Pr eliminary Blood NEGATIVE TO SAMUEL E Microbiology 03/21/19 03:50 Sputum - Endotracheal Tube Aspirate Gram Stain - Final 03/21/19 03:50 Sputum - Endotracheal Tube Aspirate Sputum Culture - Preliminary Staphylococcus aureus 03/21/19 02:30 Urine Catheterized Urine Culture - Preliminary 03/21/19 01:57 Blood Blood Culture - Preliminary NEGATIVE TO DATE 03/21/19 01:58 Blood Blood Culture - Preliminary NEGATIVE TO DATE A&P Additional A&P Information This is a 23-year-old white male with a long history of addiction and psychosis with likely some element of his psychosis being drug-induced versus withdrawal induced who presents to the ICU with mental status changes and inability to make informed consent. 1. Continue current medication. Except: 2. Restart Depakote ER 1000 mg by mouth daily at bedtime. 3. We'll likely start either Invega or Abilify with a plan to move towards an IM injection of either of those 2 medications. 4. Monitor for medical clearance and stability and consider transfer to the NPU. 5. Would be open to continued psychiatric care on the unit when medically stable. Attestations NPU Medical Necessity Statement*: N/A. Inpatient hospitalization necessity is deferred to the primary team, however hospitalization psychiatrically after medical stability is determined is medically necessary and the clinically appropriate intervention at this time. 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
[2019-03-21] MEDS: LORazepam 2 mg/mL INJ 1 mL 1 MG IVP ×3 (18:59→19:00)
[2019-03-21] MEDS: divalproex ER 500 mg Tablet (24H) 2000 MG PO (19:53)
[2019-03-21] MEDS: LORazepam 2 mg Tablet PO (20:18)
[2019-03-21] MEDS: trazodone 50 mg Tablet PO (20:18)
--- NOTE | 2019-03-21 20:24 | PC.NURSE ---
1900 bedside report rcvd at this time. precedex infusing at 0.3 mcg/kg/hr at this time. pt awake and arguing c staff but lethargic. sitter at bedside. security at bedside. vss per cm. rectal temp 100.4 at this time per monitor . adame in place c clear yellow urine . annabelle cho.
--- NOTE | 2019-03-21 20:27 | PC.NURSE ---
2029 pt noted to be increasingly fidgety . pt concerned he is going to of pneumonia . reassured pt that he is being treated c abx and he was being watched closely . sitter at bedside. pt concerned because sitter is watching him i explained that was her job. 2 mg po ativan given per apr. annabelle cho.
[2019-03-22] VITALS (24 sets, daily range): BP systolic 101–186; BP diastolic 44–101; PULSE 82–119; RESP 15–28; TEMP 36.9–38.3; O2SAT 98–100; BMI 30.4
[2019-03-22] MEDS: acetaminophen 500 mg Tablet 1000 MG PO (04:01)
[2019-03-22] MEDS: piperacillin-tazobactam 3.375 GM in sodium chloride 0.9% (plus) 50 ML IV ×2 (04:09→11:51)
[2019-03-22 04:43] LABS: Basophils % 0.2 %; Eosinophils # 0.1 10^3/uL (0.0-0.8); Eosinophils % 0.8 %; Hematocrit 40.7 % (42.0-52.0); Hemoglobin 13.1 g/dL (11.7-16.6); Lymphocytes % 9.1 %; Mean Corpuscular HGB Conc 32.2 g/dL (30.0-36.0); Mean Corpuscular Hemoglobin 29.3 pg (28.0-34.0); Mean Corpuscular Volume 91.1 fL (80-94); Monocytes # 0.4 10^3/uL (0.2-0.9); Neutrophils # 9.2 10^3/uL (1.8-7.7); Neutrophils % 85.4 %; Nucleated Red Blood Cells % 0 %; Platelet Count 215 10^3/cmm (130-400); Red Blood Count 4.47 10^6/uL (4.1-5.3); Red Cell Distribution Width 11.7 % (12.1-15.1); White Blood Count 10.8 10^3/uL (4.0-10.0)
[2019-03-22 05:00] LABS: Alanine Aminotransferase 18 U/L (0-41); Albumin Level 3.9 g/dL (3.5-5.2); Alkaline Phosphatase 73 IU/L (40-130); Anion Gap 15.1 (5-19); Aspartate Amino Transferase 28 U/L (0-40); Blood Urea Nitrogen 9 mg/dL (6-20); Calcium 9.3 mg/dL (8.5-10.5); Carbon Dioxide 25 mmol/L (22-29); Chloride 104 mmol/L (98-107); Globulin 2.6 g/dL (1.3-4.6); Glomerular Filtration Rate 82.2 mL/min (90-130); Glucose 113 mg/dL (74-109); Potassium 4.1 mmol/L (3.5-5.1); Sodium 140 mmol/L (136-145); Total Bilirubin 0.6 mg/dL (0.15-1.2); Total Protein 6.5 g/dL (6.6-8.7)
--- NOTE | 2019-03-22 06:43 | PC.NURSE ---
precedex off since 429 pt more coherent and calm. continues to be sexually inappropriate at times pt pulling on adame. adame removed per irving cho at this time. urinal provided sitter at bedside. annabelle cho.
--- NOTE | 2019-03-22 07:00 | XR_ITS ---
WS: [id number] CHEST XRAY TECHNIQUE: Portable chest. CLINICAL INFORMATION: Follow-up fever, history of respiratory failure COMPARISON: March 21, 2019 FINDINGS: Heart: Normal cardiac silhouette. Lungs: Lungs are clear. No consolidation or pleural effusion. Bones: Normal visualized bony structures. XR/XR chest 1V portable [id number] IMPRESSION: Normal chest
[2019-03-22 09:09] LABS: Influenza A by IFA Negative (Negative)
[2019-03-22 09:10] LABS: Influenza B by IFA Negative (Negative)
[2019-03-22] MEDS: D5-NS 0.45% + KCL 20 mEq 20 MEQ/1,000 ML BAG 30 MEQ IV (10:26)
--- NOTE | 2019-03-22 10:55 | PC.CHAP ---
Pastoral Care Encounter/Spiritual Assessment Type of Contact [] Declined awning erector visit [] Patient/Family/Request visit [] Outpatient visit [] Follow-up visit [] Physician referral [] Code/Alert [] Routine visit [] Staff referral [] Actively dying [x] Patient sleeping [] Family support [] [] Out of room [] Palliative care [] [] Receiving care in room [] Pre-surgical visit [] Trauma [] Long length of stay [x] ICU visit [] Other: Relational/Emotional Strength [] Patient feels connected with others/family/visitors/staff [] Distress [] Loneliness/isolation [] Abandonment Spirituality of Patient [] Person of Fabiana [] Attends Sikhism of their Fabiana [] Believes in Prayer [] Reads Bible or Taoist materials [] There are Spiritual issues to be addressed Stagecraft Professor Interventions [] Prayer [] Active listening [] Non-anxious presence [] Spiritual/emotional support [] Crisis/trauma care [] Spiritual counseling [] Bereavement support [] Provided bereavement packet [] Provided Bible/devotional materials [] Provided toy/stuffed animal, coloring book to patient or family member [] Provided Communion [] Anointing/Silex [] Salvation [] Completed spiritual assessment [] Other: Impact on Illness or Injury [] Angry [] Fearful [] Anxious [] Often cries [] Exhaustion [] Unable to work [] Unable to attend rastafari [] Unable to walk/stand [] Unable to read [] Unable to drive [] Unable to eat/drink [] Unable to sleep [] Unable to be with family [] Patient intubated [] Other: Summary Patient was sleeping at the time of visit. Visit attempted by Stagecraft Professor Jose Angel Herron Time spent with patient 3 minutes
[2019-03-22] MEDS: folic acid 1 mg Tablet PO (11:50)
[2019-03-22] MEDS: multivitamin therapeutic Tablet 1 TAB PO (11:51)
[2019-03-22] MEDS: thiamine 100 mg Tablet PO (11:51)
--- NOTE | 2019-03-22 12:23 | PC.NURSE ---
DIFFICULT TO COMMUNICATE WITH, WILL WHISPER TO NURSE WHEN TALKING. REFUSES TO USE ARMS AT TIMES D/T NERVE BEING DAMAGED REFUSES TO ANSWER IF SUICIDAL/HOMICIDAL. REFUSED LUNCH. PIID TO LEFT FOREARM DISCONTINUED D/T INFILTRATION.
--- NOTE | 2019-03-22 14:44 | PM.PN ---
Subjective Subjective: Interval history: Arnel reports he is eager to leave the hospital. He reports no significant cough. Nurse alerts me his temperature has improved. Medications: Reviewed: Yes Vitals/I&O/Wt Last Vital Signs Temp 99.4 F 03/22/19 11:48 Pulse 90 03/22/19 14:00 Resp 20 H 03/22/19 14:00 BP 144/76 03/22/19 14:00 Pulse Ox 99 03/22/19 12:00 03/21/19 03/22/19 03/22/19 22:59 06:59 14:59 Intake Total 2460 / 2564 50 / 2614 1504 / 1504 Output Total 2800 / 2800 900 / 900 Balance 2460 / 2564 -2750 / -186 604 / 604 Weight last 48 hrs Weight 98.974 kg Weight 96.57 kg Physical Exam Narrative: EXAM NARRATIVE: General exam no apparent distress Cardiovascular regular rate and rhythm Lungs clear Abdomen is soft with positive bowel sounds Extremities no cyanosis clubbing or edema Urinary Catheter Management^: Mina: Cath Placed During This Visit: no Data : 03/22/19 04:07 03/22/19 04:07 Micro: Microbiology 03/21/19 03:50 Gram Stain - Final Sputum - Endotracheal Tube Aspirate Sputum Culture - Preliminary Staphylococcus aureus 03/21/19 02:30 Urine Culture - Preliminary Urine Catheterized 03/21/19 01:57 Blood Culture - Preliminary Blood NEGATIVE TO DATE 03/21/19 01:58 Blood Culture - Preliminary Blood NEGATIVE TO DATE A&P Assessment and plan (1) Delirium due to multiple etiologies, acute, hyperactive: Decompensated schizophrenia. Currently stable on Ativan. He has been extubated. Status: Acute Code(s): F05 - Delirium due to known physiological condition (2) Suicidal ideation: Psychiatric consultation. Currently on a 96-hour hold Status: Acute Code(s): R45.851 - Suicidal ideations Additional A&P Information Fever. Concern yesterday regarding aspiration and Zosyn was started. Fever has defervesced. No infiltrate on x-ray. Change to Augmentin as he is extubated. Continue for 3 more days. 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
[2019-03-22] MEDS: LORazepam 2 mg/mL INJ 1 mL IVP ×2 (17:47→18:42)
--- NOTE | 2019-03-22 18:16 | PC.NURSE ---
LIZ HAS REFUSED DINNER & AMOXICILLIN. BECOMING AGITATED D/T HE DOESN'T WANT TO BE HERE & THAT HIS 96 HOUR HOLD SHOULD BE OVER. EDUCATED PT THAT WEEKENDS/HOLIDAYS DON'T COUNT TOWARDS HOLD. SITTER REMAINS AT BEDSIDE.
[2019-03-23 06:00] VITALS: BP 128/76; PULSE 85; RESP 17; TEMP 37.1; O2SAT 96
--- NOTE | 2019-03-23 08:25 | PC.NURSE ---
PT UNCOOPERATIVE, REFUSES TO ALLOW NURSE TO LISTEN TO LUNG, HEART AND BS. SN DOCUMENTED WNL PT APPEARS IN NO DISTRESS.
[2019-03-23] MEDS: folic acid 1 mg Tablet PO (08:56)
[2019-03-23] MEDS: multivitamin therapeutic Tablet 1 TAB PO (08:56)
[2019-03-23] MEDS: thiamine 100 mg Tablet PO (08:56)
[2019-03-23] MEDS: amoxicillin-clav 875-125 mg Tablet 1 TAB PO ×2 (08:56→20:17)
--- NOTE | 2019-03-23 11:45 | P.PN_ITS ---
Subjective Subjective: Interval history: Arnel is sleeping in bed when I arrived. He would nod his head to a few questions. He reported he was coughing some. No shortness of breath. Medications: Reviewed: Yes Vitals/I&O/Wt Last Vital Signs Temp 98.8 F 03/23/19 06:00 Pulse 85 03/23/19 06:00 Resp 17 03/23/19 06:00 BP 128/76 03/23/19 06:00 Pulse Ox 96 03/23/19 06:00 03/22/19 03/23/19 03/23/19 22:59 06:59 14:59 Intake Total 1160 / 2664 Output Total 550 / 1450 Balance 610 / 1214 Weight last 48 hrs Weight 98.974 kg Physical Exam Narrative: EXAM NARRATIVE: General exam, sedated on the vent Cardiovascular regular in rhythm Lungs clear Abdomen is soft, positive bowel sounds Extremities no cyanosis clubbing or edema Urinary Catheter Management^: Mina: Cath Placed During This Visit: no Data : 03/22/19 04:07 03/22/19 04:07 Micro: Microbiology 03/21/19 02:30 Urine Culture - Final Urine Catheterized 03/21/19 03:50 Gram Stain - Final Sputum - Endotracheal Tube Aspirate Sputum Culture - Preliminary Staphylococcus aureus A&P Assessment and plan (1) Delirium due to multiple etiologies, acute, hyperactive: Decompensated schizophrenia. He has transition to the neuropsychiatric unit. He appears calm currently. Status: Acute Code(s): F05 - Delirium due to known physiological condition (2) Suicidal ideation: Psychiatry managing Status: Acute Code(s): R45.851 - Suicidal ideations Additional A&P Information Fever. Concern regarding aspiration. Placed on Zosyn initially. Change to Augmentin. He refused 1 dose yesterday. No further fevers noted. Hypokalemia, resolved History of polysubstance use At this point he appears medically stable. I will sign off. Please call with any questions. 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
[2019-03-23 14:00] VITALS: BP 123/72; PULSE 92; RESP 20; TEMP 36.5; O2SAT 95
--- NOTE | 2019-03-23 18:28 | PC.NURSE ---
PT REFUSED SCHEDULED AUGMENTIN
[2019-03-23] MEDS: trazodone 50 mg Tablet PO (20:17)
[2019-03-23] MEDS: divalproex ER 500 mg Tablet (24H) 2000 MG PO (20:18)
--- NOTE | 2019-03-23 21:46 | P.PN_ITS ---
Subjective NPU Subjective: Interval history: Arnel presented today with little to no responses and acting fairly bizarre. It is unclear whether his behavior is intentional/volitional or out of his control. He reportedly has a history of sort of playing games, while on the unit. He has a reported history of hypersexual behavior and attention seeking. He mostly stared during questioning and mumbled under his breath impossible one-word answers. Mental Status Exam MSE Comments: This is overweight and obese white male with a hospital scrubs on with limited grooming and adequate eye contact. No abnormal movements except for extreme psychomotor retardation. Uncooperative with exam in occasional distress. Speech was limited and unaudible when it appeared he was going to speak. Mood not answered, affect extremely subdued and lethargic. Thought process unable to assess. Thought content:He demonstrated no self directed or outwardly directed aggression, he did not appear to be attending to internal stimuli. Attention and concentration were impaired and memory was unreliable but none were formally tested. He is alert to self. Insight and judgment and impulse control are significantly impaired. Vitals/I&O/Wt Last Vital Signs Temp 97.7 F 03/23/19 14:00 Pulse 92 03/23/19 14:00 Resp 20 H 03/23/19 14:00 BP 123/72 03/23/19 14:00 Pulse Ox 95 03/23/19 14:00 Weight last 48 hrs Weight 98.974 kg Physical Exam Urinary Catheter Management^: Mina: Cath Placed During This Visit: yes Urethral Indwelling: No Urinary Catheter Date of Insertion: 03/19/19 Urinary Catheter Time of Insertion: 22:50 Data NPU : 03/22/19 04:07 03/22/19 04:07 Micro: Microbiology 03/21/19 03:50 Gram Stain - Final Sputum - Endotracheal Tube Aspirate Sputum Culture - Preliminary Staphylococcus aureus 03/21/19 02:30 Urine Culture - Final Urine Catheterized Microbiology 03/21/19 03:50 Sputum - Endotracheal Tube Aspirate Gram Stain - Final 03/21/19 03:50 Sputum - Endotracheal Tube Aspirate Sputum Culture - Preliminary Staphylococcus aureus 03/21/19 02:30 Urine Catheterized Urine Culture - Final A&P Additional A&P Information This is a 23-year-old white male with a long history of addiction and psychosis with likely some element of his psychosis being drug-induced versus withdrawal induced who presents to the NPU with mental status changes and inability to make informed consent. 1. Continue current medication. Except: 2 We'll likely start either Invega or Abilify with a plan to move towards an IM injection of either of those 2 medications. 3. Continue one-to-one. 4. We will consider Ativan in the event this actually represents catatonia. Involuntary Hold Information 96 Hour Hold: 96 Hour Involuntary Admission: Yes 96 Hour Hold Ending Date: 03/25/19 96 Hour Hold Ending Time: 23:30 Attestations NPU Medical Necessity Statement*: Inpatient hospitalization is medically necessary and the clinically appropriate intervention at this time. He will be on the inpatient unit for over 2 midnights. We will monitor medications, consider a long-acting injectable and titrate to effect. Likely length of stay 4 to 6 da ys. 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
[2019-03-24 06:00] VITALS: BP 113/72; PULSE 97; RESP 19; TEMP 37.1; O2SAT 95
[2019-03-24] MEDS: folic acid 1 mg Tablet PO (10:55)
[2019-03-24] MEDS: thiamine 100 mg Tablet PO (10:55)
[2019-03-24] MEDS: amoxicillin-clav 875-125 mg Tablet 1 TAB PO ×3 (10:55→17:13)
[2019-03-24] MEDS: multivitamin therapeutic Tablet 1 TAB PO (10:55)
[2019-03-24 14:00] VITALS: BP 126/82; PULSE 58; RESP 16; TEMP 36.7; O2SAT 96
--- NOTE | 2019-03-24 17:55 | PM.NPN ---
Subjective NPU Subjective: Interval history: Arnel presented today initially requesting to speak to this telegraphic typewriter installer and then when this telegraphic typewriter installer obliged him he then proceeded as if he was not going to speak to this telegraphic typewriter installer. The conversation was very challenging. He was requiring great effort to get answers, limited ask what answer was desired, endorsed that something was a problem that he was having and then with a discussion was initiated about that problem he would say I have no idea what you're talking about. Then took a tray that he had not eaten from at this point and took the sandwich, stacked tater tots on top of it and took a bite of it but as he bit it he essentially emulated needing to vomit. He continued his gagging behavior. He asked whether he would be leaving. I explained the 96 hour process. But also expressed lack of clarity of whether he would be safe to be discharged. Mental Status Exam MSE Comments: This is overweight and obese white male with hospital scrubs on with limited grooming and adequate eye contact. No abnormal movements except for extreme psychomotor retardation. Uncooperative with exam in occasional distress. Speech was limited and unaudible at times when it appeared he was going to speak. Mood not answered, affect extremely subdued and lethargic. Thought process organized. Thought content:He demonstrated no self directed or outwardly directed aggression, he did not appear to be attending to internal stimuli. Attention and concentration were impaired and memory was unreliable but none were formally tested. He is alert to self. Insight and judgment and impulse control are significantly impaired. Vitals/I&O/Wt Last Vital Signs Temp 98.1 F 03/24/19 14:00 Pulse 58 L 03/24/19 14:00 Resp 16 03/24/19 14:00 BP 126/82 03/24/19 14:00 Pulse Ox 96 03/24/19 14:00 Physical Exam Urinary Catheter Management^: Mina: Cath Placed During This Visit: yes Urethral Indwelling: No Urinary Catheter Date of Insertion: 03/19/19 Urinary Catheter Time of Insertion: 22:50 Data NPU : 03/22/19 04:07 03/22/19 04:07 Micro: Microbiology 03/21/19 03:50 Gram Stain - Final Sputum - Endotracheal Tube Aspirate Sputum Culture - Final Staphylococcus aureus Microbiology 03/21/19 03:50 Sputum - Endotracheal Tube Aspirate Gram Stain - Final 03/21/19 03:50 Sputum - Endotracheal Tube Aspirate Sputum Culture - Final Staphylococcus aureus A&P Additional A&P Information This is a 23-year-old white male with a long history of addiction and psychosis with likely some element of his psychosis being drug-induced versus withdrawal induced who presents to the NPU with mental status changes and inability to make informed consent. 1. Continue current medication. Except: 2 We'll likely start either Invega or Abilify with a plan to move towards an IM injection of either of those 2 medications. Invega would likely be preferred given the lack of a need for overlap with oral medication. 3. Continue one-to-one. 4. We will consider Ativan in the event this actually represents catatonia. 5. His behaviors are very and it is unclear whether it is volitional or delirious behavior at this point. This could represent significant cluster B pathology. Involuntary Hold Information 96 Hour Hold: 96 Hour Involuntary Admission: Yes 96 Hour Hold Ending Date: 03/25/19 96 Hour Hold Ending Time: 23:30 Attestations NPU Medical Necessity Statement*: Inpatient hospitalization is medically necessary and the clinically appropriate intervention at this time. We will monitor medications, consider a long-acting injectable and titrate to effect. Likely length of stay 4 to 6 days. Coding Level of Care Code Acute Commission Sales Associate for [facility] [facility]
[2019-03-24] MEDS: divalproex ER 500 mg Tablet (24H) 2000 MG PO (21:09)
[2019-03-24] MEDS: trazodone 50 mg Tablet PO (21:09)
[2019-03-24 22:00] VITALS: BP 126/77; PULSE 59; RESP 18; TEMP 36.8; O2SAT 96
[2019-03-25] MEDS: thiamine 100 mg Tablet PO (08:39)
[2019-03-25] MEDS: folic acid 1 mg Tablet PO (08:39)
[2019-03-25] MEDS: amoxicillin-clav 875-125 mg Tablet 1 TAB PO ×2 (08:39→17:44)
[2019-03-25] MEDS: multivitamin therapeutic Tablet 1 TAB PO (08:39)
[2019-03-25 14:00] VITALS: BP 119/58; PULSE 57; RESP 20; TEMP 36.6; O2SAT 96
--- NOTE | 2019-03-25 15:41 | PM.NPN ---
Subjective NPU Subjective: Interval history: Arnel presented today fairly irritable and resistant to conversation. When I brought up his last methamphetamine use he got really angry and identified me talking about methamphetamine as the problem. Very much posturing aggressively. Stating his plan was to return home but not wanting to discuss his mother's desire that he not come home without treatment. We discussed the possibility of a 21-day hold which made him very angry. He continues to refuse medication. Mental Status Exam MSE Comments: This is overweight and obese white male with hospital scrubs on with limited grooming and adequate eye contact. No abnormal movements except for extreme psychomotor retardation. Uncooperative with exam in occasional distress. Speech was limited and increased rate and volume at times. Mood not answered, affect extremely irritable. Thought process organized. Thought content:He demonstrated no self directed, but showed outwardly directed aggression, he did not appear to be attending to internal stimuli. Attention and concentration were impaired and memory was unreliable but none were formally tested. He is alert to self. Insight and judgment and impulse control are significantly impaired. Vitals/I&O/Wt Last Vital Signs Temp 98 F 03/25/19 14:00 Pulse 61 03/25/19 20:15 Resp 15 03/25/19 20:15 BP 134/78 03/25/19 20:15 Pulse Ox 97 03/25/19 20:15 Physical Exam Urinary Catheter Management^: Mina: Cath Placed During This Visit: yes Urethral Indwelling: No Urinary Catheter Date of Insertion: 03/19/19 Urinary Catheter Time of Insertion: 22:50 Data NPU : 03/22/19 04:07 03/22/19 04:07 Micro: Microbiology 03/21/19 01:57 Blood Culture - Final Blood NO GROWTH AFTER 5 DAYS 03/21/19 01:58 Blood Culture - Final Blood NO GROWTH AFTER 5 DAYS Microbiology 03/21/19 01:57 Blood Blood Culture - Final NO GROWTH AFTER 5 DAYS 03/21/19 01:58 Blood Blood Culture - Final NO GROWTH AFTER 5 DAYS A&P Assessment and plan (1) Schizophrenia: 1. Continue current medication. Except: 2 We'll likely start either Invega with a plan to move towards an IM injection of either of those 2 medications. 3. Continue one-to-one. 4. We will consider Ativan in the event this actually represents catatonia. 5. His behaviors are very and it is unclear whether it is volitional or delirious behavior at this point. This could represent significant cluster B pathology. 6. Initiate 21 day hold. Will await mother's visit to see if she can impact situation towards treatment. Status: Acute Code(s): F20.9 - Schizophrenia, unspecified (2) Cluster B personality disorder: Status: Acute Code(s): F60.89 - Other specific personality disorders Involuntary Hold Information 96 Hour Hold: 96 Hour Involuntary Admission: Yes 96 Hour Hold Ending Date: 03/25/19 96 Hour Hold Ending Time: 23:30 Attestations NPU Medical Necessity Statement*: Inpatient hospitalization is medically necessary and the clinically appropriate intervention at this time. We will monitor medications, consider a long-acting injectable and titrate to effect. Likely length of stay 4 to 6 days. Coding Level of Care Code Acute Quality Analyst/Technical Writer for [employer] Diagnoses Schizophrenia F20.9 Cluster B personality disorder F60.89
--- NOTE | 2019-03-25 16:10 | PC.SOCIAL ---
Approached patient about discussion with physician and the request made by his mother. She asked that he put her on his HIPPA form so she could speak to the doctor and also speak to the HRS worker about his Medicaid. If he did this then she would come and pick him up after she got off work tomorrow. He said that she told him she would pick him up tonight when his 96 hour hold was up. He wanted to call her together and walked to the phone. He dialed the wrong number and became frustrated, I offered to retrieve the number for him. He instead told me to Fuck off, I'm not signing anything, you're just trying to get me to stay here longer . He then proceeded to loudly say Fuck you to me several times as he walked back to his room. Physician updated. Charge nurse Marilee was present during this incident as well as his 1:1 sitter.
[2019-03-25 20:15] VITALS: BP 134/78; PULSE 61; RESP 15; O2SAT 97
--- NOTE | 2019-03-25 20:16 | PC.NURSE ---
VITAL SIGNS PATIENT REFUSED TEMPERATURE.
[2019-03-25] MEDS: divalproex ER 500 mg Tablet (24H) 2000 MG PO (21:02)
[2019-03-25] MEDS: trazodone 50 mg Tablet PO (21:02)
[2019-03-26] MEDS: amoxicillin-clav 875-125 mg Tablet 1 TAB PO ×2 (11:48→17:02)
--- NOTE | 2019-03-26 11:56 | P.PN_ITS ---
Subjective NPU Subjective: Interval history: Arnel presents today reporting that he wants to go home. We discussed the fact that he is on 21-day hold right now and we had a very long discussion with his mom in the room and then with her out of the room about what it would take for him to be a candidate for discharge. We discussed the risks, benefits and alternatives of Invega including the ability for Invega to be moved to injectable and be taken every month to 3 months. And he understood and agreed to proceed as is documented in this note. Mental Status Exam MSE Comments: This is overweight versus obese white male with hospital scrubs on with limited grooming and adequate eye contact. No abnormal movements except for psychomotor retardation. more cooperative with exam today in occasional distress. Speech was slightly decreased rate and volume. Mood fine, affect irritable. Thought process organized. Thought content:He demonstrated no self directed, but showed outwardly directed aggression, he did not appear to be attending to internal stimuli. Attention and concentration were improving and memory was unreliable but none were formally tested. He is alert and oriented x 3. Insight and judgment and impulse control areimpaired. Vitals/I&O/Wt Last Vital Signs Temperature 98.7, pulse 73, respirations 18, pulse ox 97%, blood pressure 112/75. Physical Exam Urinary Catheter Management^: Mina: Cath Placed During This Visit: yes Urethral Indwelling: No Urinary Catheter Date of Insertion: 03/19/19 Urinary Catheter Time of Insertion: 22:50 Data NPU : 03/22/19 04:07 03/22/19 04:07 Micro: Microbiology 03/21/19 01:57 Blood Culture - Final Blood NO GROWTH AFTER 5 DAYS 03/21/19 01:58 Blood Culture - Final Blood NO GROWTH AFTER 5 DAYS Microbiology 03/21/19 01:57 Blood Blood Culture - Final NO GROWTH AFTER 5 DAYS 03/21/19 01:58 Blood Blood Culture - Final NO GROWTH AFTER 5 DAYS A&P Additional A&P Information This is a 23-year-old white male with a long history of addiction and psychosis with likely some element of his psychosis being drug-induced versus withdrawal induced who presents to the NPU with mental status changes and inability to make informed consent. 1. Continue current medication. Except: 2 Start Invega 6mg po qdaily 3. Continue one-to-one. 4. encourage individual, group and milieu therapy. 5. Refer to highest level of sober living after care to which he is willing to commit. Involuntary Hold Information 96 Hour Hold: 96 Hour Involuntary Admission: Yes 96 Hour Hold Ending Date: 03/25/19 96 Hour Hold Ending Time: 23:30 Attestations NPU Medical Necessity Statement*: Inpatient hospitalization is medically necessary and the clinically appropriate intervention at this time. We will monitor medications, consider a long-acting injectable and titrate to effect. Likely length of stay 4 to 6 days. Coding Level of Care Code Acute Acute Care Physician for [facility]
--- NOTE | 2019-03-26 12:56 | PC.SOCIAL ---
Court date for 21 day hold scheduled for March 29, 2019 at 2:30PM in the Probate Division of the [address] of [place], [place].
[2019-03-26] MEDS: paliperidone ER 6 mg Tablet PO (13:15)
[2019-03-26 14:00] VITALS: BP 112/75; PULSE 73; RESP 18; TEMP 37.1; O2SAT 97
[2019-03-26] MEDS: trazodone 50 mg Tablet PO (20:18)
[2019-03-26 20:34] VITALS: RESP 18
--- NOTE | 2019-03-26 20:34 | PC.NURSE ---
VITAL SIGNS PATIENT REFUSED VITAL SIGNS.
[2019-03-27 06:00] VITALS: BP 131/80; PULSE 51; RESP 15; O2SAT 90
--- NOTE | 2019-03-27 06:43 | PC.NURSE ---
VITAL SIGNS PATIENT REFUSED VITAL SIGNS.
[2019-03-27] MEDS: amoxicillin-clav 875-125 mg Tablet 1 TAB PO ×2 (08:09→17:04)
[2019-03-27] MEDS: paliperidone ER 6 mg Tablet PO (08:09)
[2019-03-27 14:00] VITALS: BP 137/92; PULSE 92; RESP 16; O2SAT 98
--- NOTE | 2019-03-27 19:09 | P.PN_ITS ---
Subjective NPU Subjective: Interval history: Arnel presents today focused on the plan and what he might be discharged. There are no significant issues reported today. He continues to be on one-on-one. We discussed the likelihood that we would give him the first injection tomorrow and see how he tolerates that. We agreed that if he continues to manage himself the way he is he gives himself the best chance of discharge in the next couple of days. Mental Status Exam MSE Comments: This is overweight versus obese white male with hospital scrubs on with adequate dress, grooming and eye contact. No abnormal movements except for psychomotor retardation. more cooperative with exam, in no acute distress. Speech was slightly decreased rate and volume. Mood ready to go home, affect less irritable. Thought process organized. Thought content:He denied and suicidal or homicidal ideations, he did not appear to be attending to internal stimuli. Attention and concentration were improving and memory was unreliable but none were formally tested. He is alert and oriented x 3. Insight and judg ment and impulse control are impaired, but improving. Vitals/I&O/Wt Last Vital Signs Temp 98.7 F 03/26/19 14:00 Pulse 92 03/27/19 14:00 Resp 16 03/27/19 14:00 BP 137/92 03/27/19 14:00 Pulse Ox 98 03/27/19 14:00 Physical Exam Urinary Catheter Management^: Mina: Cath Placed During This Visit: yes Urethral Indwelling: No Urinary Catheter Date of Insertion: 03/19/19 Urinary Catheter Time of Insertion: 22:50 Data NPU : 03/22/19 04:07 03/22/19 04:07 A&P Additional A&P Information This is a 23-year-old white male with a long history of addiction and psychosis with likely some element of his psychosis being drug-induced versus withdrawal induced who presents to the NPU with mental status changes and inability to make informed consent. 1. Continue current medication. May start the Invega injection tomorrow. 2. Continue one-to-one. 3. encourage individual, group and milieu therapy. 4. Refer to highest level of sober living after care to which he is willing to commit. Involuntary Hold Information 96 Hour Hold: 96 Hour Involuntary Admission: Yes 96 Hour Hold Ending Date: 03/25/19 96 Hour Hold Ending Time: 23:30 Attestations NPU Medical Necessity Statement*: Inpatient hospitalization is medically necessary and the clinically appropriate intervention at this time. We will monitor medications, consider a long-acting injectable and titrate to effect. Likely length of stay 4 to 6 days. Coding Level of Care Code Acute Supervisor Component Assembler for [facility]
--- NOTE | 2019-03-27 20:18 | PC.NURSE ---
THIS NURSE CARRYING CARTONS OF MILK TO DAYROOM FOR SNACK TIME, PT STATES TO OTHER MALE PTS NURSE APPROACHES OH YEAH THATS WHAT IM TALKING ABOUT, LETS GET SOME MILK FROM HER PT MAKES STATEMENT USING INAPPROPRIATE BODY LANGUAGE.
[2019-03-27 20:34] VITALS: BP 120/70; PULSE 66; RESP 18; O2SAT 97
[2019-03-27] MEDS: trazodone 50 mg Tablet PO (21:53)
[2019-03-28 06:00] VITALS: BP 125/75; PULSE 50; RESP 16; O2SAT 97; BMI 28.0
[2019-03-28] MEDS: amoxicillin-clav 875-125 mg Tablet 1 TAB PO ×2 (10:02→16:46)
[2019-03-28] MEDS: paliperidone ER 6 mg Tablet PO (10:02)
--- NOTE | 2019-03-28 12:36 | PM.NPN ---
Subjective NPU Subjective: Interval history: Arnel presented today continuing to have an eye presentation. Not appearing as irritable but continuing to have every question and every step of the process be questioned. He came into the office and reportedly did not want the one-to-one in the office with a period we discussed the importance of him getting to a point where he does not need a sitter for him to be discharged. He still without sitting. As he sat there slowly began to droop to point where clearly a well person with no definite knee restarting to have exposure of their pelvic region and he stated there without any reaction. I then asked if he was going to sit down and if he was going to pull his pants up or does allow him to fall to the ground at which time he adjusted. Questions I asked with your basic questions and conversation he needed to ask why the question being asked. He reports eating and sleeping okay. Mental Status Exam MSE Comments: This is overweight versus obese white male with hospital scrubs on with adequate dress, grooming and eye contact. No abnormal movements except for psychomotor retardation. more cooperative with exam, in no acute distress. Speech was decreased rate and volume. Mood was okay, affect less irritable but more resistant. Thought process organized. Thought content:He denied and suicidal or homicidal ideations, he did not appear to be attending to internal stimuli. Attention and concentration were improving and memory was unreliable but none were formally tested. He is alert and oriented x 3. Insight and judgment and impulse control are impaired, but improving. Vitals/I&O/Wt Last Vital Signs Temp 98.7 F 03/26/19 14:00 Pulse 50 L 03/28/19 06:00 Resp 16 03/28/19 06:00 BP 125/75 03/28/19 06:00 Pulse Ox 97 03/28/19 06:00 Weight last 48 hrs Weight 91.342 kg Physical Exam Urinary Catheter Management^: Mina: Cath Placed During This Visit: yes Urethral Indwelling: No Urinary Catheter Date of Insertion: 03/19/19 Urinary Catheter Time of Insertion: 22:50 Data NPU : 03/22/19 04:07 03/22/19 04:07 A&P Additional A&P Information This is a 23-year-old white male with a long history of addiction and psychosis with likely some element of his psychosis being drug-induced versus withdrawal induced who presents to the NPU with mental status changes and inability to make informed consent. 1. Continue current medication. Will give Invega injection today. 2. Continue one-to-one. 3. encourage individual, group and milieu therapy. 4. Refer to highest level of sober living after care to which he is willing to commit. 5. Continued assessment suggests very highly that there is a significant cluster B aspect to this. The large part of his difficulty of getting success is likely that he has borderline personality disorder. Involuntary Hold Information 96 Hour Hold: 96 Hour Involuntary Admission: Yes 96 Hour Hold Ending Date: 03/25/19 96 Hour Hold Ending Time: 23:30 Attestations NPU Medical Necessity Statement*: Inpatient hospitalization is medically necessary and the clinically appropriate intervention at this time. We will monitor medications, will give long-acting injectable today and likely give oral medication just for a few additional days. Likely length of stay 4 to 6 days Coding Level of Care Code Acute Legal Services Professional for [facility]
[2019-03-28 13:17] VITALS: BP 136/82; O2SAT 98
[2019-03-28 14:00] VITALS: BP 120/72; PULSE 54; RESP 17; O2SAT 98
--- NOTE | 2019-03-28 14:01 | PC.NURSE ---
refused to let this nurse obtain Temperature
[2019-03-28] MEDS: acetaminophen 325 mg Tablet 650 MG PO (16:47)
[2019-03-28 21:36] VITALS: BP 135/95; PULSE 65; RESP 19; TEMP 36.7; O2SAT 98
[2019-03-28] MEDS: trazodone 50 mg Tablet PO (21:48)
[2019-03-29 06:00] VITALS: BP 109/65; PULSE 74; RESP 19; TEMP 36.4; O2SAT 98
[2019-03-29] MEDS: amoxicillin-clav 875-125 mg Tablet 1 TAB PO ×2 (09:22→17:22)
[2019-03-29] MEDS: paliperidone ER 6 mg Tablet PO (09:22)
--- NOTE | 2019-03-29 10:59 | NPU.GN ---
Neuropsych Unit Group Topic: General Mood of Group Client did come into the group room for about 3 minutes and stood over this nurse while I was leading a group. He smiled and then told me that he was tired, and that he had to come to group in order to get rid of the 1:1, he then went back up the [address]ang way with 1:1 sitter
[2019-03-29] MEDS: paliperidone palmitate 234 mg Syringe IM (12:48)
[2019-03-29 14:00] VITALS: BP 122/72; PULSE 82; RESP 20; TEMP 36.2; O2SAT 98
--- NOTE | 2019-03-29 15:27 | PC.NURSE ---
Pt was asked if he wanted to talk to his mother on the phone and he stuck his finger up his nose and made a face at me which led me to believe that he did not want to want to talk to mom. He never did answer me.
--- NOTE | 2019-03-29 16:07 | PC.SOCIAL ---
21 day hold granted. If longer hold is required it will need to be filed prior to 04/14/2019.
--- NOTE | 2019-03-29 16:08 | PM.NPN ---
Subjective NPU Subjective: Interval history: Arnel presents today on the day of his 21-day hold choosing to defer to the treatment recommendations of the provider. This is largely due to his mother's position that if he does not follow the recommendations he will not be able to go home. It is her desire and agreement with this play writer that he be in at the very least outpatient rehab if not inpatient rehab and he continue on a long-acting injectable. He took the Invega injection today without incident. Mental Status Exam MSE Comments: This is overweight versus obese white male with hospital scrubs on with adequate dress, grooming and eye contact. No abnormal movements except for psychomotor retardation. more cooperative with exam, in no acute distress. Speech was decreased rate and volume. Mood was fine, affect slightly less irritable. Thought process organized. Thought content:He denied and suicidal or homicidal ideations, he did not appear to be attending to internal stimuli. Attention and concentration were improving and memory was unreliable but none were formally tested. He is alert and oriented x 3. Insight and judgment and impulse control are impaired, but improving. Vitals/I&O/Wt Last Vital Signs Temp 97.5 F L 03/29/19 06:00 Pulse 74 03/29/19 06:00 Resp 19 H 03/29/19 06:00 BP 109/65 03/29/19 06:00 Pulse Ox 98 03/29/19 06:00 Weight last 48 hrs Weight 91.342 kg Physical Exam Urinary Catheter Management^: Mina: Cath Placed During This Visit: yes Urethral Indwelling: No Urinary Catheter Date of Insertion: 03/19/19 Urinary Catheter Time of Insertion: 22:50 Data NPU : 03/22/19 04:07 03/22/19 04:07 A&P Additional A&P Information This is a 23-year-old white male with a long history of addiction and psychosis with likely some element of his psychosis being drug-induced versus withdrawal induced who presents to the NPU with mental status changes and inability to make informed consent. 1. Continue current medication. 2. Discontinue one-to-one. 3. encourage individual, group and milieu therapy. 4. Refer to highest level of sober living after care to which he is willing to commit. 5. Continued assessment suggests very highly that there is a significant cluster B aspect to this. The large part of his difficulty of getting success is likely that he has borderline personality disorder. Involuntary Hold Information 96 Hour Hold: 96 Hour Involuntary Admission: Yes 96 Hour Hold Ending Date: 03/25/19 96 Hour Hold Ending Time: 23:30 Attestations NPU Medical Necessity Statement*: Inpatient hospitalization is medically necessary and the clinically appropriate intervention at this time. We will monitor medications, will give long-acting injectable today and likely give oral medication just for a few additional days. Likely length of stay 2-4 days Coding Level of Care Code Acute Waiter/Waitress Cocktail Lounge for [facility] Black
[2019-03-29 22:00] VITALS: BP 116/76; PULSE 68; RESP 18; TEMP 36.6; O2SAT 98
[2019-03-30 06:00] VITALS: BP 115/70; PULSE 65; RESP 16; TEMP 36.6; O2SAT 97
[2019-03-30] MEDS: amoxicillin-clav 875-125 mg Tablet 1 TAB PO ×2 (08:43→17:53)
[2019-03-30] MEDS: paliperidone ER 6 mg Tablet PO (08:44)
[2019-03-30 13:22] VITALS: BP 117/66; PULSE 63; RESP 20; TEMP 36.6; O2SAT 97
--- NOTE | 2019-03-30 13:28 | P.PN_ITS ---
Subjective NPU Subjective: Interval history: Arnel presents today reporting that he is doing okay. He continues to be frustrated that he has to stay however due to decisions he made that prevented him from taking care of of his paperwork for insurance he is not able to get his second injection outside of the hospital at this point. Given his significant issues with med adherence as well as issues with aggression and things of that nature, we discussed keeping him until the second injection at least. He has not been causing problems recently and seems to be accepting that situation. I explained to him that Dr. 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 He is eating fine and sleeping okay. Mental Status Exam MSE Comments: This is overweight versus obese white male with hospital scrubs on with adequate dress, grooming and eye contact. No abnormal movements except for psychomotor retardation. more cooperative with exam, in no acute distress. Speech was decreased rate and volume, but improving slowly. Mood reported as OK, affect slightly less irritable. Thought process organized. Thought content:He denied and suicidal or homicidal ideations, he did not appear to be attending to internal stimuli. Attention and concentration were improving and memory was unreliable but none were formally tested. He is alert and oriented x 3. Insight and judgment and impulse control are impaired, but improving. Vitals/I&O/Wt Last Vital Signs Temperature 97.8, pulse 65, respirations 16, pulse ox 97%, blood pressure 115/70 . Physical Exam Urinary Catheter Management^: Mina: Cath Placed During This Visit: yes Urethral Indwelling: No Urinary Catheter Date of Insertion: 03/19/19 Urinary Catheter Time of Insertion: 22:50 Data NPU : 03/22/19 04:07 03/22/19 04:07 A&P Additional A&P Information This is a 23-year-old white male with a long history of addiction and psychosis with likely some element of his psychosis being drug-induced versus withdrawal induced who presents to the NPU with mental status changes and inability to make informed consent. 1. Continue current medication. 2. Discontinue one-to-one. 3. encourage individual, group and milieu therapy. 4. Refer to highest level of sober living after care to which he is willing to commit. 5. Continued assessment suggests very highly that there is a significant cluster B aspect to this. The large part of his difficulty of getting success is likely that he has borderline personality disorder. Involuntary Hold Information 96 Hour Hold: 96 Hour Involuntary Admission: Yes 96 Hour Hold Ending Date: 03/25/19 96 Hour Hold Ending Time: 23:30 Attestations NPU Medical Necessity Statement*: Inpatient hospitalization is medically necessary and the clinically appropriate intervention at this time. We will monitor medications and titrate as indicated Likely length of stay 2-4 days Coding Level of Care Code Acute Maintenance Data Analyst for Hao Black
[2019-03-30] MEDS: trazodone 50 mg Tablet PO (20:24)
[2019-03-30 21:33] VITALS: BP 101/56; PULSE 61; RESP 16; TEMP 36.7; O2SAT 98
--- NOTE | 2019-03-30 23:20 | PC.NURSE ---
Patient was observed sitting in the tub filled with water and wearing his clothes. Patient was redirected to get out of the tub and go back to his room. Staff gave patient clean dry clothes to change into.
[2019-03-31 06:00] VITALS: BP 105/58; PULSE 54; RESP 15; TEMP 36.7; O2SAT 98
[2019-03-31] MEDS: amoxicillin-clav 875-125 mg Tablet 1 TAB PO ×2 (08:30→16:52)
[2019-03-31] MEDS: paliperidone ER 6 mg Tablet PO (08:30)
--- NOTE | 2019-03-31 08:51 | P.PN_ITS ---
Subjective NPU Subjective: Interval history: The patient engages in massive passive aggression. He looks at the floor and answers in monosyllabic responses. He says he does not know what the medicines are doing for him. He does not appear to be psychotic per se. I review the text of affidavits in the record and he says, I do not know what you mean. In short, this patient is completely di sengaged from staff-patient treatment relationship. Medications: Reviewed: Yes Medication Review Details: The patient has no real insight into the relevance of injectable Invega to his situation. He seems to be distraught that he cannot control his situation. Mental Status Exam MSE Comments: The patient is found lying in bed after breakfast. He enters the room and leaves the door open. I suggested he close it to assure the privacy of his healthcare information. He deliberately moves the door to within an inch and a half of the jamb, making it possible for others to overhear our conversation. He has no answer to questions about his mood but it is plainly evident that he is disgruntled and not engaged in his care. Cognitive functions are difficult to assess but there is no evidence of memory impairment. Patient is bereft of insight and judgment. Yet does not seem like there has been much progress since yesterday. Vitals/I&O/Wt Last Vital Signs Temp 98.1 F 03/31/19 06:00 Pulse 54 L 03/31/19 06:00 Resp 15 03/31/19 06:00 BP 105/58 03/31/19 06:00 Pulse Ox 98 03/31/19 06:00 Physical Exam Urinary Catheter Management^: Mina: Cath Placed During This Visit: yes Urethral Indwelling: No Urinary Catheter Date of Insertion: 03/19/19 Urinary Catheter Time of Insertion: 22:50 Data NPU : 03/22/19 04:07 03/22/19 04:07 A&P Additional A&P Information Additional A&P Information This is a 23-year-old white male with a long history of addiction and psychosis with likely some element of his psychosis being drug-induced versus withdrawal induced who presents to the NPU with mental status changes and inability to make informed consent. 1. Continue current medication. 2. Discontinue one-to-one. 3. encourage individual, group and milieu therapy. 4. Refer to highest level of sober living after care to which he is willing to commit. 5. Continued assessment suggests very highly that there is a significant cluster B aspect to this. The large part of his difficulty achieving success likely arises from the florid borderline personality disorder. Involuntary Hold Information 96 Hour Hold: 96 Hour Involuntary Admission: Yes 96 Hour Hold Ending Date: 03/25/19 96 Hour Hold Ending Time: 23:30 Attestations NPU Medical Necessity Statement*: This patient is profoundly regressed. I anticipate 5-7 midnights additional stay. He is not competent for safe discharge and is completely unable to resume the risk of a less-restrictive millieu. Coding Level of Care Code Acute Drill Sharpener for Hao Black
[2019-03-31 14:00] VITALS: BP 110/47; PULSE 72; RESP 20; TEMP 36.7; O2SAT 98
[2019-03-31 19:49] VITALS: BP 109/65; PULSE 60; RESP 15; O2SAT 100
[2019-03-31] MEDS: trazodone 50 mg Tablet PO (20:33)
[2019-04-01 06:00] VITALS: BP 100/59; PULSE 47; RESP 15; O2SAT 96
[2019-04-01] MEDS: paliperidone ER 6 mg Tablet PO (08:39)
[2019-04-01] MEDS: amoxicillin-clav 875-125 mg Tablet 1 TAB PO ×2 (08:39→17:46)
[2019-04-01 13:50] VITALS: BP 108/68; PULSE 60; RESP 16; TEMP 36.7; O2SAT 97
--- NOTE | 2019-04-01 16:41 | P.PN_ITS ---
Subjective NPU Subjective: Interval history: I do not know what you mean. In short, this patient is completely disengaged from staff-patient treatment relationship. Medications: Medication Review Details: The patient has no real insight into the relevance of injectable Invega to his situation. He seems to be distraught that he cannot control his situation. Mental Status Exam MSE Comments: Mental Status Exam: Appearance: hygiene is fair; no gross neurological deficits., gait is unremarkable; AIMS=0 Speech: Speech is of normal rate and rhythm and easily understood. patients maintained at single word responses. Thought processes: Thought processes are concrete. Judgment is not adequate for safety without supervision. Associations: intact Psychotic processes: There is no indication of guarding or paranoia. There is no attention to the internal stimuli. Auditory and visual hallucinations are denied. Judgment: Insight is poor. Problem solving skills are notadequate for safety. Orientation: The patient is oriented to person, place time and situation. Memory: no deficits noted in immediate, intermediate, or remote spheres. Attention: The patient is alert and interpersonally engaged. Language: Verbalizations are coherent. Fund of knowledge: Fund of knowledge is adequate. Affect/Mood: Affect is consistent with a depressed mood. denies suicidal ideation Affective range is constricted Psychosis: perception difficult to assess; reality testing marginal Cognition: Patient Appearance: Disheveled/Poor Hygiene and No Eye Contact Level of Consciousness: Awake and Combative Patient Cognition Impaired: Yes Ability to Follow Directions: Poor Patient Orientation (long list): Person Hallucination Type: None Delusion Description: Not Present Thought Process: Blocking Affect: Affect Description: [place] Behavior: Patient Behavior: Cooperative Speech Pattern: Clear Vitals/I&O/Wt Last Vital Signs Temp 98.0 F 04/01/19 13:50 Pulse 60 04/01/19 13:50 Resp 16 04/01/19 13:50 BP 108/68 04/01/19 13:50 Pulse Ox 97 04/01/19 13:50 Physical Exam Urinary Catheter Management^: Mina: Cath Placed During This Visit: yes Urethral Indwelling: No Urinary Catheter Date of Insertion: 03/19/19 Urinary Catheter Time of Insertion: 22:50 Data NPU : 03/22/19 04:07 03/22/19 04:07 A&P Assessment and plan (1) Schizophrenia: 1. Continue current medication. Except: 2 We'll likely start either Invega with a plan to move towards an IM injection of either of those 2 medications. 3. Continue one-to-one. 4. We will consider Ativan in the event this actually represents catatonia. 5. His behaviors are very and it is unclear whether it is volitional or delirious behavior at this point. This could represent significant cluster B pathology. 6. Initiate 21 day hold. Will await mother's visit to see if she can impact situation towards treatment. Status: Acute Code(s): F20.9 - Schizophrenia, unspecified (2) Cluster B personality disorder: Status: Acute Code(s): F60.89 - Other specific personality disorders Additional A&P Information Additional A&P Information This is a 23-year-old white male with a long history of addiction and psychosis with likely some element of his psychosis being drug-induced versus withdrawal induced who presents to the NPU with mental status changes and inability to make informed consent. 1. Continue current medication. 2. Discontinue one-to-one. 3. encourage individual, group and milieu therapy. 4. Refer to highest level of sober living after care to which he is willing to commit. 5. Continued assessment suggests very highly that there is a significant cluster B aspect to this. The large part of his difficulty achieving success likely arises from the florid borderline personality disorder. Involuntary Hold Information 96 Hour Hold: 96 Hour Involuntary Admission: Yes 96 Hour Hold Ending Date: 03/25/19 96 Hour Hold Ending Time: 23:30 Attestations NPU Medical Necessity Statement*: patient will remain in the hospital another 21 days for the extent of his 21 day commitment. Coding Level of Care Code Acute Field Worker for Hao Black Diagnoses Schizophrenia F20.9 Cluster B personality disorder F60.89
[2019-04-01 20:14] VITALS: BP 120/78; PULSE 145; RESP 14; O2SAT 98
[2019-04-01] MEDS: trazodone 50 mg Tablet PO (21:08)
[2019-04-02 06:00] VITALS: BP 114/73; PULSE 63; RESP 15; O2SAT 97
[2019-04-02] MEDS: amoxicillin-clav 875-125 mg Tablet 1 TAB PO ×2 (09:01→17:36)
[2019-04-02] MEDS: paliperidone ER 6 mg Tablet PO (09:02)
--- NOTE | 2019-04-02 10:09 | PM.NPN ---
Subjective NPU Subjective: Interval history: Pt acknowledges the plan described below. He has no complaints and makes no requests. The plan of delayed discharge so that he can have his second injection is agreeable ot him. Mental Status Exam MSE Comments: Mental Status Exam: pt is encountered laying in bed asleep in mid-morning. No apparent distress. Easily aroused by verabl stimuli. Appearance: hygiene is fair; no gross neurological deficits.; AIMS=0 Speech: Speech is of normal rate and rhythm and easily understood. responses maintained at single word responses. Thought processes: Thought processes are concrete. Judgment is not adequate for safety without supervision. Associations: intact Psychotic processes: There is no indication of guarding or paranoia. There is no attention to the internal stimuli. Auditory and visual hallucinations are denied. Judgment: Insight is poor. Problem solving skills are not adequate for safety. Orientation: The patient is oriented to person, place time and situation. Memory: no deficits noted in immediate, intermediate, or remote spheres. Attention: The patient is alert and interpersonally engaged. Language: Verbalizations are coherent. Fund of knowledge: Fund of knowledge is adequate. Affect/Mood: Affect is flat with a self-repored euthymic mood. denies suicidal ideation Affective range is constricted Psychosis: perception difficult to assess; reality testing marginal Cognition: Patient Appearance: Disheveled/Poor Hygiene and No Eye Contact Level of Consciousness: Awake and Combative Patient Cognition Impaired: Yes Ability to Follow Directions: Poor Patient Orientation (long list): Person, Place and Time Hallucination Type: None Delusion Description: Not Present Thought Process: Blocking Affect: Affect Description: Flat Behavior: Patient Behavior: Cooperative Speech Pattern: Clear Vitals/I&O/Wt Last Vital Signs Temp 98.0 F 04/01/19 13:50 Pulse 63 04/02/19 06:00 Resp 15 04/02/19 06:00 BP 114/73 04/02/19 06:00 Pulse Ox 97 04/02/19 06:00 Physical Exam Urinary Catheter Management^: Mina: Cath Placed During This Visit: yes Urethral Indwelling: No Urinary Catheter Date of Insertion: 03/19/19 Urinary Catheter Time of Insertion: 22:50 Data NPU : 03/22/19 04:07 03/22/19 04:07 A&P Assessment and plan (1) Schizophrenia: 1. Continue current medication. Except: 2 We'll likely start either Invega with a plan to move towards an IM injection of either of those 2 medications. 3. Continue one-to-one. 4. We will consider Ativan in the event this actually represents catatonia. 5. His behaviors are very and it is unclear whether it is volitional or delirious behavior at this point. This could represent significant cluster B pathology. 6. Initiate 21 day hold. Will await mother's visit to see if she can impact situation towards treatment. Status: Acute Code(s): F20.9 - Schizophrenia, unspecified (2) Cluster B personality disorder: Status: Acute Code(s): F60.89 - Other specific personality disorders Additional A&P Information Additional A&P Information This is a 23-year-old white male with a long history of addiction and psychosis with likely some element of his psychosis being drug-induced versus withdrawal induced who presents to the NPU with mental status changes and inability to make informed consent. 1. Continue current medication. Plan is for him to remain here for 3 more nights for his second Invega injection and then to be discharged to home. 2. Discontinue one-to-one. 3. encourage individual, group and milieu therapy. 4. Refer to highest level of sober living after care to which he is willing to commit. 5. Continued assessment suggests very highly that there is a significant cluster B aspect to this. The large part of his difficulty achieving success likely arises from the florid borderline personality disorder. Involuntary Hold Information 96 Hour Hold: 96 Hour Involuntary Admission: Yes 96 Hour Hold Ending Date: 03/25/19 96 Hour Hold Ending Time: 23:30 Attestations NPU Medical Necessity Statement*: Plan is for him to remain here for 3 more nights for his second Invega injection and then to be discharged to home. Coding Level of Care Code Acute Press Operator [employer] for Hao Black Diagnoses Schizophrenia F20.9 Cluster B personality disorder F60.89
[2019-04-02 14:00] VITALS: BP 113/73; PULSE 71; RESP 18; TEMP 36.3; O2SAT 99
[2019-04-02 20:08] VITALS: BP 121/73; PULSE 61; RESP 16; O2SAT 97
[2019-04-02] MEDS: trazodone 50 mg Tablet PO (22:17)
[2019-04-03 06:00] VITALS: BP 115/71; PULSE 52; RESP 15; O2SAT 97
[2019-04-03] MEDS: amoxicillin-clav 875-125 mg Tablet 1 TAB PO ×2 (08:13→17:37)
[2019-04-03] MEDS: paliperidone ER 6 mg Tablet PO (08:13)
[2019-04-03 11:35] VITALS: BP 114/76; PULSE 93; O2SAT 98
--- NOTE | 2019-04-03 11:47 | P.PN_ITS ---
Subjective NPU Subjective: Interval history: He has no complaints and makes no requests. Mental Status Exam MSE Comments: Mental Status Exam: pt is encountered mid-morning. No apparent distress. HE is not attending group therapy and isolates hiumself except during meals. Appearance: hygiene is fair; no gross neurological deficits.; AIMS=0 Speech: Speech is of normal rate and rhythm and easily understood. responses maintained at single word responses. Thought processes: Thought processes are concrete. Judgment is not adequate for safety without supervision. Associations: intact Psychotic processes: There is no indication of guarding or paranoia. There is no attention to the internal stimuli. Auditory and visual hallucinations are denied. Judgment: Insight is poor. Problem solving skills are not adequate for safety. Orientation: The patient is oriented to person, place time and situation. Memory: no deficits noted in immediate, intermediate, or remote spheres. Attention: The patient is alert and interpersonally engaged. Language: Verbalizations are coherent. Fund of knowledge: Fund of knowledge is adequate. Affect/Mood: Affect is flat with a self-repored euthymic mood. denies suicidal ideation Affective range is constricted Psychosis: perception difficult to assess; reality testing marginal Cognition: Patient Appearance: Appropriate Level of Consciousness: Awake and Combative Patient Cognition Impaired: Yes Ability to Follow Directions: Poor Patient Orientation (long list): Person, Place and Time Hallucination Type: None Delusion Description: Not Present Thought Process: Appropriate Affect: Affect Description: Appropriate and [place] Behavior: Patient Behavior: Appropriate Speech Pattern: Appropriate Vitals/I&O/Wt Last Vital Signs Temp 97.3 F L 04/02/19 14:00 Pulse 93 04/03/19 11:35 Resp 15 04/03/19 06:00 BP 114/76 04/03/19 11:35 Pulse Ox 98 04/03/19 11:35 Physical Exam Urinary Catheter Management^: Mina: Cath Placed During This Visit: yes Urethral Indwelling: No Urinary Catheter Date of Insertion: 03/19/19 Urinary Catheter Time of Insertion: 22:50 Data NPU : 03/22/19 04:07 03/22/19 04:07 A&P Assessment and plan (1) Schizophrenia: 1. Continue current medication. Except: 2. continue 21 day hold. Second invega injection is due in two days. Plaement to be pursued at that time. Status: Acute Code(s): F20.9 - Schizophrenia, unspecified (2) Cluster B personality disorder: Status: Acute Code(s): F60.89 - Other specific personality disorders Additional A&P Information Additional A&P Information This is a 23-year-old white male with a long history of addiction and psychosis with likely some element of his psychosis being drug-induced versus withdrawal induced who presents to the NPU with mental status changes and inability to make informed consent. 1. continue 21 day hold. Second invega injection is due in two days. Plaement to be pursued at that time. 2. Discontinue one-to-one. 3. encourage individual, group and milieu therapy. 4. Refer to highest level of sober living after care to which he is willing to commit. 5. Continued assessment suggests very highly that there is a significant cluster B aspect to this. The large part of his difficulty achieving success likely arises from the florid borderline personality disorder. Involuntary Hold Information 96 Hour Hold: 96 Hour Involuntary Admission: Yes 96 Hour Hold Ending Date: 03/25/19 96 Hour Hold Ending Time: 23:30 Attestations NPU Medical Necessity Statement*: 2 more nights so that he can have his scheduled injection before discharge Coding Level of Care Code Acute Banking Services Officer for Hao Fwyadira Diagnoses Schizophrenia F20.9 Cluster B personality disorder F60.89
[2019-04-03 14:00] VITALS: BP 114/76; PULSE 93; RESP 15; O2SAT 98
[2019-04-03 21:02] VITALS: BP 107/60; PULSE 110; RESP 20; TEMP 36.7; O2SAT 96
[2019-04-03] MEDS: trazodone 50 mg Tablet PO (21:36)
[2019-04-04 06:00] VITALS: BP 115/69; PULSE 56; RESP 17; TEMP 36.9; O2SAT 96
[2019-04-04] MEDS: amoxicillin-clav 875-125 mg Tablet 1 TAB PO ×2 (08:49→16:50)
[2019-04-04] MEDS: paliperidone ER 6 mg Tablet PO (08:49)
[2019-04-04 13:54] VITALS: BP 95/50; PULSE 72; RESP 18; TEMP 36.5; O2SAT 98
--- NOTE | 2019-04-04 15:14 | PM.NPN ---
Subjective NPU Subjective: Interval history: patient prepared for discharge when guardian consents Mental Status Exam MSE Comments: Mental Status Exam: . No apparent distress. HE is not attending group therapy and isolates hiumself except during meals. Appearance: hygiene is fair; no gross neurological deficits.; AIMS=0 Speech: Speech is of normal rate and rhythm and easily understood. responses maintained at single word responses. Thought processes: Thought processes are concrete. Judgment is not adequate for safety without supervision. Associations: intact Psychotic processes: There is no indication of guarding or paranoia. There is no attention to the internal stimuli. Auditory and visual hallucinations are denied. Judgment: Insight is poor. Problem solving skills are not adequate for safety. Orientation: The patient is oriented to person, place time and situation. Memory: no deficits noted in immediate, intermediate, or remote spheres. Attention: The patient is alert and interpersonally engaged. Language: Verbalizations are coherent. Fund of knowledge: Fund of knowledge is adequate. Affect/Mood: Affect is flat with a self-reported euthymic mood. denies suicidal ideation Affective range is constricted Psychosis: perception difficult to assess; reality testing marginal Vitals/I&O/Wt Last Vital Signs Temp 97.7 F 04/04/19 13:54 Pulse 72 04/04/19 13:54 Resp 18 04/04/19 13:54 BP 95/50 04/04/19 13:54 Pulse Ox 98 04/04/19 13:54 Weight last 48 hrs Weight 94.892 kg Physical Exam Urinary Catheter Management^: Mina: Cath Placed During This Visit: yes Urethral Indwelling: No Urinary Catheter Date of Insertion: 03/19/19 Urinary Catheter Time of Insertion: 22:50 Data NPU : 03/22/19 04:07 03/22/19 04:07 A&P Additional A&P Information A&P Assessment and plan (1) Schizophrenia: 1. Continue current medication. Except: 2. continue 21 day hold. Second invega injection is due in two days. Plaement to be pursued at that time. Status: Acute Code(s): F20.9 - Schizophrenia, unspecified (2) Cluster B personality disorder: Status: Acute Code(s): F60.89 - Other specific personality disorders Additional A&P Information Additional A&P Information This is a 23-year-old white male with a long history of addiction and psychosis with likely some element of his psychosis being drug-induced versus withdrawal induced who presents to the NPU with mental status changes and inability to make informed consent. 1. continue 21 day hold. Second invega injection is due in two days. Plaement to be pursued at that time. 2. Discontinue one-to-one. 3. encourage individual, group and milieu therapy. 4. Refer to highest level of sober living after care to which he is willing to commit. 5. Continued assessment suggests very highly that there is a significant cluster B aspect to this. The large part of his difficulty achieving success likely arises from the florid borderline personality disorder. Involuntary Hold Information 96 Hour Hold: 96 Hour Involuntary Admission: Yes 96 Hour Hold Ending Date: 03/25/19 96 Hour Hold Ending Time: 23:30 Attestations NPU Medical Necessity Statement*: Pt to remain in the hospital 1-2 more nights to facilitate placement Coding Level of Care Code Acute It Architecture Analyst for Hao Black
[2019-04-04] MEDS: trazodone 50 mg Tablet PO ×2 (20:06→21:19)
[2019-04-04 21:31] VITALS: BP 109/66; PULSE 88; RESP 20; TEMP 36.7; O2SAT 97
[2019-04-05 06:00] VITALS: BP 97/61; PULSE 54; RESP 16; TEMP 36.8; O2SAT 97
[2019-04-05] MEDS: paliperidone ER 6 mg Tablet PO (08:12)
[2019-04-05] MEDS: amoxicillin-clav 875-125 mg Tablet 1 TAB PO (08:12)
--- NOTE | 2019-04-05 11:42 | P.DS_ITS ---
Diagnoses at Discharge Discharge Diagnosis (1) Schizophrenia: Status: Acute (2) Cluster B personality disorder: Status: Acute Reason for Visit Reason for Visit: Reason For Visit: acute mental status change;overdose;substance abus Hospital Course Hospital Course Arnel Jeffries is a 23 year old male who presents to the ICU secondary to mental status changes and concerns for psychosis and lethality. He is currently fairly lethargic and unable to make a clear conversation. He is mostly saying [id number] statements like stating that this typewriter ribbon winder is God, saying that he needs to get back to his God, reporting that he can't return to his family because they are not who he thinks they are. He reports that they were several different God. He initially stated that he wanted to make sure everyone was out in the room and may be close the door but then once I did that there was nothing of real significance that he said but he clearly thought that his statements were of significance. I talked to him about the possibility of coming down to the neuropsych unit and he reported that he felt he was fine while he is clearly in an altered mental state. I did have the opportunity to speak to his mother and she shared with me that he has had a long history of addiction particularly the methamphetamine and he was about 15 years old on and off. She reports that he has not had any drugs to her knowledge over the past 3 weeks because he had been in correction and she picked him up from correction and he's been at the house mostly f unctioning like he is now such that he could not leave or do anything independently. So she feels fairly confident that he has not had any drugs. She endorses that he had a hospitalization here at [facility] back in April of last year and that he only took the medication for short period of time. She reports that since then he's been off of the medication. She reports that he has done well on the Depakote but she is unsure about other medications. She denies him ever being on Abilify that she is aware of as we discussed the hopeful goal of getting him on an injectable which she had been attempting or trying to get in place for some time without success. Admission MSE: This is overweight versus obese white male with hospital scrubs on with adequate dress, grooming and eye contact. No abnormal movements except for psychomotor retardation. more cooperative with exam, in no acute distress. Speech was decreased rate and volume. Mood was fine, affect slightly less irritable. Thought process organized. Thought content: He denied and suicidal or homicidal ideations, he did not appear to be attending to internal stimuli. Attention and concentration were improving and memory was unreliable but none were formally tested. He is alert and oriented x 3. Insight and judgment and impulse control are impaired, but improving. This is a 23-year-old white male with a long history of addiction and psychosis with likely some element of his psychosis being drug-induced versus withdrawal induced who presents to the ICU with mental status changes and inability to make informed consent. 1. Continue current medication. Except: 2. Restart Depakote ER 1000 mg by mouth daily at bedtime. 3. We'll likely start either Invega or Abilify with a plan to move towards an IM injection of either of those 2 medications. 4. Monitor for medical clearance and stability and consider transfer to the NPU. 5. Would be open to continued psychiatric care on the unit when medically stable. The treating psychiatrist made the decision to not restart Depakote. The patient was not ready for discharge at the end of his [address] granted another 21 days to facilitate stabilization on Invega and continuation of antibiotic for staph pneumonia. Both of these treatment were beneficial and he was discharged to placement. Involuntary Hold Information 96 Hour Hold: 96 Hour Involuntary Admission: Yes 96 Hour Hold Ending Date: 03/25/19 96 Hour Hold Ending Time: 23:30 Physical Exam Urinary Catheter Management^: Mina: Cath Placed During This Visit: yes Urethral Indwelling: No Urinary Catheter Date of Insertion: 03/19/19 Urinary Catheter Time of Insertion: 22:50 Discharge Data Data Completed and Pending: Completed Studies During Hospitalization Category Date Time Status CT head wo con* 7 0450 Urgent Cat Scan 03/19/19 19:[address] head wo con* 7 0450 Urgent Cat Scan 03/21/19 01:22 Completed XR chest 1V [place] ble [id number] NOW Exams 03/20/19 04:44 Completed XR chest 1V carrillo ble [id number] Routine Exams 03/22/19 07:00 Completed XR chest 1V carrillo ble [id number] Stat Exams 03/21/19 01:19 Completed Vitals: Last Vital Signs Temp 98.2 F 04/05/19 06:00 Pulse 54 L 04/05/19 06:00 Resp 16 04/05/19 06:00 BP 97/61 04/05/19 06:00 Pulse Ox 97 04/05/19 06:00 Discharge Plan Discharge Patient Disposition: Home, Self-Care Condition: Stable Prescriptions: New trazodone 50 mg Tablet 50 mg PO BEDTIME Qty: 30 RF: 4 paliperidone 6 mg Tablet Extended Release 24hr 6 mg PO DAILY Qty: 30 RF: 4 Discontinued benztropine 0.5 mg tablet 1 mg PO BID RF: 0 hydroxyzine pamoate 50 mg capsule 1 mg PO BREAD ROOM HAND RF: 0 divalproex 500 mg tablet extended release 24 hr 2,000 mg PO BREAD ROOM HAND RF: 0 haloperidol 5 mg tablet 1 mg PO BEDTIME RF: 0 trazodone 50 mg tablet 50 mg PO BEDTIME RF: 0 Discharge Orders: Discharge Order (Routine); Ordered 04/05/19 Ordered By: Tai Huff Referrals: [facility] [Outside] Activity Restrictions/Additional Instructions: Follow up as a walk in at [facility], walk in hours are from 7:30AM- 2:00PM, first come, first seen. Once you do this assessment you will be referred for appropriate services, such as medication management and therapy. Until you are established with a medication provider here you will need to go to your primary care provider or Urgent Care for your monthly Invega Sustenna injection. [address] [place] [address] Discharge Attestations NPU Time Spent in Discharge Care*: less than 30 min Coding Level of Care Code Acute Maternity Nurse for Chg Fwd Diagnoses Schizophrenia F20.9 Cluster B personality disorder F60.89
[2019-04-05 12:01] VITALS: BP 97/61; PULSE 54; RESP 16; TEMP 36.8; O2SAT 97
[2019-04-05] MEDS: paliperidone palmitate 156 mg Syringe IM (15:01)
--- NOTE | 2019-04-05 15:01 | PC.NURSE ---
GARRETT SUSTENNA 156 MG INJECTION GIVEN ORDERED. GIVEN IN LEFT DELTOID. WILL CONT TO MONITOR INJECTION SITE FOR ANY REDNESS, SWELLING, OR IRRITATION. LOT [id number] EXP 05/2019
== END 2019-04-05 17:45 | disposition home or self-care (01) | DRG 885 ==
LOC: ER 19:36 → ICU 23:00 → NP 03-22 19:41
PROVIDERS: Admitting Provider Internal Medicine; Emergency Provider Emergency Medicine; Family Provider Physician Assistant Medical; PCP Physician Assistant Medical; Visit Provider Internal Medicine
DX: F20.9 Schizophrenia, unspecified (principal); R45.851 Suicidal ideations; F43.20 Adjustment disorder, unspecified; F32.9 Major depressive disorder, single episode, unspecified; F15.10 Other stimulant abuse, uncomplicated; E87.6 Hypokalemia; E66.9 Obesity, unspecified; Z68.29 Body mass index [BMI] 29.0-29.9, adult; F60.89 Other specific personality disorders; Z78.1 Physical restraint status
CPT/HCPCS: 12345; 36415; 51702; 70450; 71045; 80048; 80053; 80164; 80307; 81003; 82550; 82803; 83605; 84443; 85025; 87040; 87070; 87077; 87086; 87186; 87205; 87804; 93005; 94002; 94003; 94799; 96365; 96366; 96372; 96374; 96375; 99285; J0330; J1650; J1953; J2060; J2250; J2543; J2704; J3010; J3411; J3486; J3490; J7030

== ENCOUNTER 2019-03-19 19:09 | Emergency (ER) | payer MEDICAID, SELFPAY | END 2019-03-19 23:40 | disposition admitted as inpatient to this hospital (09) | LOC: ER 04-08 07:50 | PROVIDERS: Emergency Provider Emergency Medicine; Family Provider Physician Assistant Medical; PCP Physician Assistant Medical | DX: R41.82 Altered mental status, unspecified (principal); F91.8 Other conduct disorders | CPT/HCPCS: 12345; 31500; 51702; 70450; 80053; 80164; 80307; 81003; 84443; 85025; 94002; 96365; 96366; 96372; 96374; 96375; 99285; 99291; J0330; J2060; J2250; J2704; J3486; J3490 ==

== ENCOUNTER → 2019-06-04 07:45 | Outpatient (BNVA) | payer MEDICAID, SELFPAY | PROVIDERS: Family Provider Physician Assistant Medical; PCP Physician Assistant Medical; Visit Provider Psychiatry & Neurology Psychiatry | DX: F20.9 Schizophrenia, unspecified (principal) | CPT/HCPCS: 99204 ==

== ENCOUNTER → 2019-09-01 07:37 | Outpatient (BNVA) | payer MEDICAID, SELFPAY | PROVIDERS: Family Provider Physician Assistant Medical; PCP Physician Assistant Medical; Visit Provider Counselor Mental Health | DX: F20.9 Schizophrenia, unspecified (principal); F78 Other intellectual disabilities | CPT/HCPCS: 90832 ==

== ENCOUNTER → 2019-09-03 07:58 | Outpatient (BNVA) | payer MEDICAID, SELFPAY | PROVIDERS: Family Provider Physician Assistant Medical; PCP Physician Assistant Medical; Visit Provider Psychiatry & Neurology Psychiatry | DX: F78 Other intellectual disabilities (principal); F60.89 Other specific personality disorders; F20.9 Schizophrenia, unspecified; F15.21 Other stimulant dependence, in remission | CPT/HCPCS: 99214 ==

== ENCOUNTER → 2019-09-15 07:53 | Outpatient (BNVA) | payer MEDICAID, SELFPAY | PROVIDERS: Family Provider Physician Assistant Medical; PCP Physician Assistant Medical; Visit Provider Counselor Mental Health | DX: F78 Other intellectual disabilities (principal); F20.9 Schizophrenia, unspecified; F15.21 Other stimulant dependence, in remission; F60.89 Other specific personality disorders | CPT/HCPCS: 90832 ==

== ENCOUNTER → 2019-10-01 13:28 | Outpatient (BNVA) | payer MEDICAID, SELFPAY | PROVIDERS: Family Provider Physician Assistant Medical; PCP Physician Assistant Medical; Visit Provider Psychiatry & Neurology Psychiatry | DX: F20.9 Schizophrenia, unspecified (principal); F60.89 Other specific personality disorders; F15.21 Other stimulant dependence, in remission; F33.1 Major depressive disorder, recurrent, moderate; F41.1 Generalized anxiety disorder | CPT/HCPCS: 96372; 99213 ==

== ENCOUNTER → 2019-11-01 07:46 | Outpatient (BNVA) | payer MEDICAID, SELFPAY | PROVIDERS: Family Provider Physician Assistant Medical; PCP Physician Assistant Medical; Visit Provider Counselor Mental Health | DX: F20.9 Schizophrenia, unspecified (principal); F15.21 Other stimulant dependence, in remission | CPT/HCPCS: 90832 ==

== ENCOUNTER → 2019-11-08 07:47 | Outpatient (BNVA) | payer MEDICAID, SELFPAY | PROVIDERS: Family Provider Physician Assistant Medical; PCP Physician Assistant Medical; Visit Provider Counselor Mental Health | DX: Z03.89 Encounter for observation for other suspected diseases and conditions ruled out (principal) | CPT/HCPCS: 90791 ==

== ENCOUNTER → 2019-11-12 08:52 | Outpatient (BNVA) | payer MEDICAID, SELFPAY | PROVIDERS: Family Provider Physician Assistant Medical; PCP Physician Assistant Medical; Visit Provider Counselor Mental Health | DX: F15.21 Other stimulant dependence, in remission (principal); Z03.89 Encounter for observation for other suspected diseases and conditions ruled out | CPT/HCPCS: 90834 ==

== ENCOUNTER → 2019-11-26 07:41 | Outpatient (BNVA) | payer MEDICAID, SELFPAY | PROVIDERS: Family Provider Physician Assistant Medical; PCP Physician Assistant Medical; Visit Provider Psychiatry & Neurology Psychiatry | DX: F20.9 Schizophrenia, unspecified (principal); F60.89 Other specific personality disorders; F15.21 Other stimulant dependence, in remission | CPT/HCPCS: 99213 ==

== ENCOUNTER → 2019-12-01 12:30 | Outpatient (BNVA) | payer MEDICAID, SELFPAY | PROVIDERS: Family Provider Physician Assistant Medical; PCP Physician Assistant Medical; Visit Provider Family Medicine | DX: Z20.828 Contact with and (suspected) exposure to other viral communicable diseases (principal); R05 Cough | CPT/HCPCS: 87400; 87635 ==

== ENCOUNTER 2020-04-14 12:43 | Outpatient (CLI) | payer MEDICAID, SELFPAY ==
--- NOTE | 2020-04-14 12:45 | US_ITS ---
WS: [id number] ULTRASOUND ABDOMEN CLINICAL INFORMATION: R10.9 - Unspecified abdominal pain COMPARISON: None. FINDINGS: Technically difficult examination due to bowel gas. Liver Size: Normal. Craniocaudal length: 16.1 cm. Echogenicity: Normal. Surface nodularity: None. Mass (size and location): None. Bile ducts Intrahepatic ducts: Normal. Common bile duct diameter: 0.4 cm. Gallbladder Normal. Gallstones: None. Gallbladder sludge: None. Gallbladder wall thickening: None. Pericholecystic fluid: None. Sonographic Perez sign: Absent. Pancreas Normal as visualized. Spleen Splenomegaly: None. Craniocaudal length: 12.6 cm. Right kidney: Normal. Hydronephrosis: None. Size: 11.3 cm x 6.1 cm x 5.4 cm Left kidney: Normal. Hydronephrosis: None. Size: 10.7 cm x 6.2 cm x 6.3 cm. Abdominal aorta and IVC Visualized portions are normal. Ascites: None. US/US abdomen complete* [id number] IMPRESSION: Normal abdominal ultrasound
== END 2020-04-14 12:44 | disposition home or self-care (01) ==
LOC: RAD 12:45
PROVIDERS: PCP Physician Assistant Medical; Visit Provider Nurse Practitioner Family
DX: R10.9 Unspecified abdominal pain (principal)
CPT/HCPCS: 76700

== ENCOUNTER 2021-04-23 16:01 | Inpatient (IN) | payer MEDICAID, SELFPAY ==
[2021-04-23 16:59] VITALS: BP 146/93; PULSE 75; RESP 16; TEMP 36.4; O2SAT 95; BMI 29.1
[2021-04-23 17:06] VITALS: BP 146/93; PULSE 75; RESP 18; O2SAT 95
--- NOTE | 2021-04-23 17:18 | ED_ITS ---
HPI - General Adult General: Chief complaint: Psychiatric Symptoms Stated complaint: Mental Evaluation Time Seen by Provider: 04/23/21 17:06 History of Present Illness: HPI: [25]yo patient w/ hx of bipolar disorder presenting for acute psychosis and inabiltiy to take care of self. Patient was recently started on medicine for his psychotic outbreaks. However the medicine has not done much. Patient was then told to go to the emergency room for mood stabilization. Per patient's father, patient has been running around the house without wearing close and does not want to do anything. On arrival, the patient is AAOx3 and cooperative with my evaluation. No focal complaints of chest pain, shortness of breath, palpitations, N/V, focal GI/ complaints. Currently denies SI/HI. No complaints of hallucinations. Onset: acute Duration: ongoing Location: home Severity: severe Associated symptoms: Deny chest pain, dyspnea, nausea, rash, palpitations or vomiting Review of Systems Const: Denies: fever(s) or chills Eyes: Denies: change in vision ENMT: Denies: mouth pain Card: Denies: chest pain or palpitations Resp: Denies: dyspnea or non-productive cough GI: Denies: abdominal pain, nausea, vomiting or diarrhea : Denies: dysuria Musc: Denies: extremity pain Skin/Breast: Denies: rash or new lesions Neuro: Denies: weakness in extremities Psych: Reports: other (Normal mood) Mikel/Lymph: Denies: easy bruising [facility] ED PFSH: Medical History (Updated 04/23/21 @ 17:18 by Alexis Larios MD) Abdominal pain Adjustment disorder Cough Depression Diminished intellectual function syndrome Fracture, ankle Homicidal ideation Incarceration Methamphetamine abuse Multiple head injury Obesity (BMI 30.0-34.9) Schizophrenia Surgical History Hx of tonsillectomy Family History Denies family history of Psychiatric illness Social History Smoking and tobacco status: former smoker Quit status (tobacco): has quit using tobacco Year quit tobacco: 2019 Second hand smoke exposure: No Smoking risk assessment/counseling performed?: No Current gender identity: Male Physical Exam Const: COMMON NORMALS: alert HENMT: COMMON NORMALS: atraumatic HEAD & SCALP: atraumatic MOUTH: moist mucous membranes not abnormal Eye: COMMON NORMALS: EOMs intact bilaterally and conjunctivae normal CONJUNCTIVA: Yes conjunctivae normal Neck/C-Spine: COMMON NORMALS: full ROM and supple Resp: COMMON NORMALS: normal respiratory effort and clear to auscultation bilaterally AUSCULTATION: clear to auscultation bilaterally Cardio: COMMON NORMALS: regular rate RATE: regular rate GI: COMMON NORMALS: Soft to palpation and non-tender PALPATION: Yes Soft to palpation Extremity: COMMON NORMALS: full ROM Neuro: SENSORIUM/ORIENTATION: Yes alert MOTOR EXAM: No Abnormal motor strength present and Other motor observations present (no focal motor deficits) Psych: COMMON NORMALS: speech normal SPEECH: Yes normal speech MOOD & AFFECT: Yes euthymic mood Course Vital Signs: Vital signs: Vital Signs Temperature 97.5 F L 04/26/21 06:00 Pulse Rate 75 04/26/21 06:00 Respiratory Rate 16 04/26/21 06:00 Blood Pressure 109/65 04/26/21 06:00 Pulse Oximetry 98 04/26/21 06:00 MDM - General Adult Medical Decision Making [25]yo patient w/ hx of bipolar disorder presenting for acute psychosis and inability to take care of self. HDS, exam within normal limit Thoughts are linear and organized, and the patient has no AH/VH, or HI. Clinically the patient displays no overt toxidrome; they are well appearing, with low suspicion for toxic ingestion given history and exam. Symptoms unlikely 2/2 anemia, hypothyroidism, infection, or ICH. Workup: CBC, BMP, salicylate/tylenol, UDS Lab findings: wnl [6:30pm] On reassessment, labs and workup wnl. Patient is hemodynamically stable with no acute medical complaints. Case discussed with psychiatric provider [] at [facility] psych inpatient with recommendation for admission Disposition: Psych Lab Data : 04/23/21 17:25 04/23/21 17:25 Laboratory Results WBC 5.8 10^3/uL (4.0-10.0) 04/23/21 17:25 RBC 5.25 10^6/uL (4.1-5.3) 04/23/21 17:25 Hgb 15.6 g/dL (11.7-16.6) 04/23/21 17:25 Hct 45.5 % (42.0-52.0) 04/23/21 17: MCV 86.7 fl (80-94) 04/23/21 17:25 MCH 29.7 pg (28.0-34.0) 04/23/21 17: MCHC 34.3 g/dL (30.0-36.0) 04/23/21: RDW 11.4 % (12.1-15.1) L 04/23/21 17: Plt Count 250 10^3/cmm (130-400) 04/23/21: MPV 10.1 fL (7.4-10.4) 04/23/21 17: Neut % (Auto) 65.5 % 04/23/21 17: Lymph % (Auto) 26.4 % 04/23/21 17: [place] % (Auto) 6.4 % 04/23/21 17:25 Eos % (Auto) 0.7 % 04/23/21 17:25 Baso % (Auto) 0.7 % 04/23/21 17: Neut # (Auto) 3.79 10^3/uL (1.8-7.7) 04/23/21: Lymph # (Auto) 1.5 10^3/uL (0.8-4.8) 04/23/21 17:25 [place] # (Auto) 0.4 10^3/uL (0.2-0.9) 04/23/21:25 Eos # (Auto) 0.0 10^3/uL (0.0-0.8) 04/23/21:25 Baso # (Auto) 0.0 10^3/uL (0.0-0.1) 04/23/21: Nucleated RBC % (auto) 0 % 04/23/21: Nucleated RBCs # 0.0 /100WBC 04/23/21 17:25 Sodium 141 mmol/L (136-145) 04/23/21 17:25 Potassium 3.8 mmol/L (3.5-5.1) 04/23/21 17: Chloride 104 mmol/L (98-107) 04/23/21 17:25 Carbon Dioxide 24 mmol/L (22-29) 04/23/21 17:25 Anion Gap 16.8 (5-19) 04/23/21 17:25 BUN 14 mg/dL (6-20) 04/23/21 17:25 Creatinine 0.8 mg/dL (0.7-1.2) 04/23/21 17:25 GFR Calculation 116.9 mL/min (90-130) 04/23/21 17:25 Glucose 127 mg/dL (65-115) H 04/23/21 17:25 Calculated Osmolality 294 mOsm/kg (285-295) 04/23/21 17:25 Calcium 9.9 mg/dL (8.5-10.5) 04/23/21 17:25 TSH 0.36 uIU/mL (0.27-4.20) 04/23/21 17:25 Free T4 1.66 ng/dL (0.82-1.77) 04/23/21 17:25 Prolactin 8.00 ng/mL (4.0-15.2) 04/23/21 17:25 Salicylates < 0.3 mg/dL (3-10) L 04/23/21 17:25 Urine Opiates Screen Negative ng/mL (Negative) 04/23/21 17:20 Acetaminophen < 5.0 ug/mL (10-30) L 04/23/21 17:25 Ur Barbiturates Screen Negative ng/mL (Negative) 04/23/21 17:20 Ur Phencyclidine Scrn Negative ng/mL (Negative) 04/23/21 17:20 Ur Amphetamines Screen Negative ng/mL (Negative) 04/23/21 17:20 U Benzodiazepines Scrn Negative ng/mL (Negative) 04/23/21 17:20 Urine Cocaine Screen Negative ng/mL (Negative) 04/23/21 17:20 U Marijuana (THC) Screen Positive ng/mL (Negative) H 04/23/21 17:20 Discharge Plan Discharge Admit Provider: Vivek Winter Clinical Impression: Psychosis Condition: Stable Coding Level of Care Code ED Continuous Improvement Lead for Chg Fwd Exam Comprehensive
[2021-04-23 17:38] VITALS: BP 146/93; PULSE 75; RESP 17; O2SAT 95
[2021-04-23 17:43] LABS: Basophils % 0.7 %; Eosinophils % 0.7 %; Hematocrit 45.5 % (42.0-52.0); Hemoglobin 15.6 g/dL (11.7-16.6); Lymphocytes # 1.5 10^3/uL (0.8-4.8); Lymphocytes % 26.4 %; Mean Corpuscular HGB Conc 34.3 g/dL (30.0-36.0); Mean Corpuscular Hemoglobin 29.7 pg (28.0-34.0); Mean Corpuscular Volume 86.7 fl (80-94); Mean Platelet Volume 10.1 fL (7.4-10.4); Monocytes # 0.4 10^3/uL (0.2-0.9); Monocytes % 6.4 %; Neutrophils # 3.79 10^3/uL (1.8-7.7); Neutrophils % 65.5 %; Nucleated Red Blood Cells % 0 %; Platelet Count 250 10^3/cmm (130-400); Red Blood Count 5.25 10^6/uL (4.1-5.3); Red Cell Distribution Width 11.4 % (12.1-15.1); White Blood Count 5.8 10^3/uL (4.0-10.0)
[2021-04-23 17:52] LABS: Amphetamines Screen Urine Negative (Negative); Barbiturates Screen Urine Negative (Negative); Benzodiazepines Screen Urine Negative (Negative); Cocaine Screen Urine Negative (Negative); Opiate Screen Urine Negative (Negative); PCP Screen Urine Negative (Negative); THC Screen Urine Positive (Negative)
[2021-04-23 18:08] LABS: Anion Gap 16.8 (5-19); Blood Urea Nitrogen 14 mg/dL (6-20); Calcium 9.9 mg/dL (8.5-10.5); Carbon Dioxide 24 mmol/L (22-29); Chloride 104 mmol/L (98-107); Glomerular Filtration Rate 116.9 mL/min (90-130); Glucose 127 mg/dL (65-115); Osmolality Calculated 294 mOsm/kg (285-295); Potassium 3.8 mmol/L (3.5-5.1); Sodium 141 mmol/L (136-145); Thyroid Stimulating Hormone 0.36 uIU/mL (0.27-4.20)
[2021-04-23 18:09] LABS: Acetaminophen < 5.0 ug/mL (10-30); Salicylate < 0.3 mg/dL (3-10)
[2021-04-23 18:29] VITALS: BP 146/87; PULSE 67; RESP 17; TEMP 36.8; O2SAT 99
[2021-04-23] MEDS: quetiapine 100 mg Tablet 200 MG PO (20:42)
[2021-04-23 22:00] VITALS: BP 164/81; PULSE 63; RESP 18; TEMP 36.4; O2SAT 99
[2021-04-23 23:11] LABS: Free T4 Free Thyroxine 1.66 ng/dL (0.82-1.77)
[2021-04-24 06:00] VITALS: BP 131/82; PULSE 72; RESP 16; TEMP 36.6; O2SAT 99
--- NOTE | 2021-04-24 10:17 | W.PM.NPUH&PS ---
Providers/Chief Complaint Admitting Physician: Vivek Winter MD Primary Care Provider: Al Rincon Chief Complaint: Mental Evaluation HPI NPU History of Present Illness Arnel Jeffries is a 25 year old male who presented to the emergency department with the following report: Chief complaint: Psychiatric Symptoms Stated complaint: Mental Evaluation Time Seen by Provider: 04/23/21 17:06 History of Present Illness:?? HPI: [25]yo patient w/ hx of bipolar disorder presenting for acute psychosis and inabiltiy to take care of self. Patient was recently started on medicine for his psychotic outbreaks. However the medicine has not done much. Patient was then told to go to the emergency room for mood stabilization. Per patient's father, patient has been running around the house without wearing close and does not want to do anything. On arrival, the patient is AAOx3 and cooperative with my evaluation. No focal complaints of chest pain, shortness of breath, palpitations, N/V, focal GI/ complaints. Currently denies SI/HI. No complaints of hallucinations. Onset: acute Duration: ongoing Location: home Severity: severe Associated symptoms: Deny chest pain, dyspnea, nausea, rash, palpitations or vomiting He was admitted to the neuropsychiatric unit for definitive treatment of those issues. Patient presents today accompanied by his reporting significant decompensation. According to them he started going to [facility] and saw a therapist who and 's memory specifically told him that he had substance-induced psychosis and therefore did not need the medication and the medication was actually causing the problem. He is that along with some side effects that he was receiving likely hyperprolactinemia from the medication to discontinue medication and he has been on a slow descent since then. He has resumed his psychotic symptoms with paranoia which is significant and likely auditory hallucinations. 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 They deny any other significant changes. We discussed the risk-benefit alternatives of restarting the Invega with which he had such significant success but exploring if he would be able to manage the injection at a much lower dose without the elevated prolactin and they understood and agreed to proceed as is documented in his note. We also got a baseline prolactin so that we could follow that as an indicator of side effect. An excerpt of his last inpatient discharge summary is included below for context. Per his 04/05/2019 [facility] inpatient psychiatric discharge summary: Hospital Course Arnel Jeffries is a 23 year old male who presents to the ICU secondary to mental status changes and concerns for psychosis and lethality.? He is currently fairly lethargic and unable to make a clear conversation.? He is mostly saying [id number] statements like stating that this ad writer is God, saying that he needs to get back to his God, reporting that he can't return to his family because they are not who he thinks they are.? He reports that they were several different God.? He initially stated that he wanted to make sure everyone was out in the room and may be close the door but then once I did that there was nothing of real significance that he said but he clearly thought that his statements were of significance.? I talked to him about the possibility of coming down to the neuropsych unit and he reported that he felt he was fine while he is clearly in an altered mental state.? I did have the opportunity to speak to his mother and she shared with me that he has had a long history of addiction particularly the methamphetamine and he was about 15 years old on and off.? She reports that he has not had any drugs to her knowledge over the past 3 weeks because he had been in nursing home and she picked him up from nursing home and he's been at the house mostly functioning like he is now such that he could not leave or do anything independently.? So she feels fairly confident that he has not had any drugs.? She endorses that he had a hospitalization here at [facility] back in April of last year and that he only took the medication for short period of time.? She reports that since then he's been off of the medication.? She reports that he has done well on the Depakote but she is unsure about other medications.? She denies him ever being on Abilify that she is aware of as we discussed the hopeful goal of getting him on an injectable which she had been attempting or trying to get in place for some time without success. Admission MSE: This is overweight versus obese white male with hospital scrubs on with adequate dress, grooming and eye contact.? No abnormal movements except for psychomotor retardation.? more cooperative with exam, in no acute distress.? Speech was decreased rate and volume.? Mood was fine, affect slightly less irritable.? Thought process organized.? Thought content: He denied and suicidal or homicidal ideations, he did not appear to be attending to internal stimuli. ? Attention and concentration were improving and memory was unreliable but none were formally tested.? He is alert and oriented x 3. Insight and judgment and impulse control are impaired, but improving. This is a 23-year-old white male with a long history of addiction and psychosis with likely some element of his psychosis being drug-induced versus withdrawal induced who presents to the ICU with mental status changes and inability to make informed consent. Meds NPU Home Medications Medication Instructions Recorded Confirmed Last Taken Type quetiapine 100 mg tablet 300 mg PO BEDTIME 04/23/21 04/23/21 Unknown History Allergies Allergy/AdvReac Type Severity Reaction Status Date / Time No Known Allergies Allergy Verified 04/23/21 17:28 PFS NPU PFSH: Medical History (Updated 04/23/21 @ 17:18 by Alexis Larios MD) Abdominal pain Adjustment disorder Cough Depression Diminished intellectual function syndrome Fracture, ankle Homicidal ideation Incarceration Methamphetamine abuse Multiple head injury Obesity (BMI 30.0-34.9) Schizophrenia Surgical History Hx of tonsillectomy Family History Denies family history of Psychiatric illness Social History Smoking and tobacco status: former smoker Quit status (tobacco): has quit using tobacco Year quit tobacco: 2020 Second hand smoke exposure: No Smoking risk assessment/counseling performed?: No Current gender identity: Male Mental Status Exam MSE Comments: This is a well-nourished well-developed white male in hospital scrubs on with adequate grooming and limited eye contact, with darting eyes No abnormal movements except for extreme psychomotor retardation. Semicooperative with exam in mild to moderate distress.? Speech was decreased rate and volume.? Mood described as okay affect guarded and occasionally irritable.? Thought process linear at times with periods of disorganization.? Thought content: Patient denied suicidal or homicidal ideations, there were no delusions reported, but clear paranoia, persecutory and possibly hyper taoism delusions exist, he denied any auditory or visual hallucinations.? Attention and concentration were impaired and memory was unreliable but none were formally tested.? He is alert and oriented ?3.? Insight and judgment and impulse control are significantly impaired. Vitals/I&O/Wt Last Vital Signs Temp 97.5 F L 04/23/21 22:00 Pulse 63 04/23/21 22:00 Resp 18 04/23/21 22:00 BP 164/81 04/23/21 22:00 Pulse Ox 99 04/23/21 22:00 Weight last 48 hrs Weight 97.522 kg Data NPU : 04/23/21 17:25 04/23/21 17:25 A&P Assessment and plan (1) Psychosis: Status: Acute (2) Abdominal pain: Status: Acute Qualifiers: Abdominal location: right upper quadrant Qualified Code(s): R10.11 - Right upper quadrant pain (3) Cough: Status: Acute (4) Methamphetamine use disorder, severe, in early remission: Status: Acute (5) Obesity (BMI 30.0-34.9): Status: Acute (6) Diminished intellectual function syndrome: Status: Acute (7) Cluster B personality disorder: Status: Acute (8) Schizophrenia: Status: Acute Plan This is a 25-year-old white male with a long history of significant addiction and psychosis with more indication of a possible baseline schizophrenia growing as he presents with significant psychosis having been taken off his previously effective antipsychotic in part due to concerns that he only had substance-induced psychosis and some hyperprolactinemia likely. 1. Continue current medication. We will restart his Invega with a 200 mg IM injection to the deltoid followed by the 156 mg injection to the deltoid as loading doses, however we will likely maintain at the lowest dose of 78 mg or possibly 1 higher and monitor his prolactin level to see if we can reduce the side effect but keep the great success he had on Invega. 2. Continue every 15 minute checks for safety. 3. Encourage individual, group and milieu therapies. 4. Encourage sober living treatment after discharge at the highest level of care to which he is willing to commit. Noteworthy that his UDS was positive for cannabis only. Involuntary Hold Information 96 Hour Hold: 96 Hour Involuntary Admission: No 96 Hour Hold Ending Date: 03/25/19 96 Hour Hold Ending Time: 23:30 Attestations NPU Medical Necessity Statement*: Inpatient hospitalization is medically necessary and the clinically appropriate intervention at this time.? He will be on the inpatient unit for over 2 midnights.? We will monitor medications, consider a long-acting injectable and titrate to effect.? Likely length of stay 4 to 6 days. Coding Level of Care Code Acute Emergency Vehicle Operations Instructor for Chg Fwd Diagnoses Psychosis F29 Abdominal pain R10.11 Abdominal location: right upper quadrant Cough R05 Methamphetamine use disorder, severe, in early remission F15.21 Obesity (BMI 30.0-34.9) E66.9 Diminished intellectual function syndrome F78 Cluster B personality disorder F60.89 Schizophrenia F20.9
--- NOTE | 2021-04-24 10:49 | NPU.GN ---
[facility] Topic:Claudia Pabon General Mood of Group: Regino did attend group but did not particpate. He stood there starring off into space like in a trans state. Regino does not seem stable at this time. CSS did not discuss [facility] services with client as CSS wanted. CSS is waiting for another day to discuss services with client.
[2021-04-24 14:00] VITALS: BP 142/87; PULSE 61; RESP 17; TEMP 36.7; O2SAT 98
[2021-04-24] MEDS: paliperidone palmitate 234 mg Syringe IM (18:46)
[2021-04-24 20:35] VITALS: BP 150/95; PULSE 62; RESP 18; TEMP 36.4; O2SAT 99
[2021-04-25 06:00] VITALS: BP 110/64; PULSE 56; RESP 16; TEMP 36.9; O2SAT 98
--- NOTE | 2021-04-25 10:42 | NPU.GN ---
[facility] Topic: Sesar Jalloh General Mood of Group: Arnel did not attend group this morning . CSS tried to meet with client to discuss services. Client was on the phone with no one but acting as though someone was on the other line. Client still has moments of standing and staring for long periods of time. Client is not stable at this time to discuss or complete paperwork for [facility] services.
--- NOTE | 2021-04-25 11:51 | W.PM.NPUPNS ---
Subjective NPU Subjective: Patient presents today reporting that he tolerated the injection yesterday just fine. According to staff and observation he continues to be fairly robotic and guarded with his eyes darting around as he often stands in one spot facing a specific direction and stands there for long periods of time without moving. He does report feeling better and may be a little less stoic/catatonic appearing. at some point called saying that he was doing much better and began talking about discharge and his birthday coming up. We discussed the importance of getting his second injection in so that there would not be any concerns after discharge for at least a month. We discussed with him the importance of us maintaining him in an appropriate setting while he is stabilized. Mental Status Exam MSE Comments: This is an overweight versus obese white male in hospital scrubs on with adequate grooming and limited eye contact, with darting eyes No abnormal movements except for significant psychomotor retardation.? Semi-cooperative with exam in mild distress.? Speech was decreased rate and volume.? Mood described as okay, affect guarded.? Thought process linear.? Thought content: Patient denied suicidal or homicidal ideations, there were no delusions reported, but clear paranoia and guardedness exist, he denied any auditory or visual hallucinations.? Attention and concentration were improving and memory was unreliable but none were formally tested.? He is alert and oriented ?3.? Insight and judgment and impulse control are impaired. Vitals/I&O/Wt Last Vital Signs Temp 98.5 F 04/25/21 06:00 Pulse 56 L 04/25/21 06:00 Resp 16 04/25/21 06:00 BP 110/64 04/25/21 06:00 Pulse Ox 98 04/25/21 06:00 Data NPU : 04/23/21 17:25 04/23/21 17:25 A&P Assessment and plan (1) Psychosis: Status: Acute (2) Abdominal pain: Status: Acute Qualifiers: Abdominal location: right upper quadrant Qualified Code(s): R10.11 - Right upper quadrant pain (3) Cough: Status: Acute (4) Methamphetamine use disorder, severe, in early remission: Status: Acute (5) Obesity (BMI 30.0-34.9): Status: Acute (6) Cluster B personality disorder: Status: Acute (7) Schizophrenia: Status: Acute Plan This is a 25-year-old white male with a long history of significant addiction and psychosis with more indication of a possible baseline schizophrenia growing as he presents with significant psychosis having been taken off his previously effective antipsychotic in part due to concerns that he only had substance-induced psychosis and some hyperprolactinemia likely. 1.? Continue current medication.? We restarted his Invega with a 234 mg IM injection to the deltoid to be followed by the 156 mg injection to the deltoid next week as loading doses, however we will likely maintain at the lowest dose of 78 mg or possibly 1 higher and monitor his prolactin level to see if we can reduce the side effect but keep the great success he had on Invega. 2.? Continue every 15 minute checks for safety. 3.? Encourage individual, group and milieu therapies. 4.? Encourage sober living treatment after discharge at the highest level of care to which he is willing to commit.? Noteworthy that his UDS was positive for cannabis only. Involuntary Hold Information 96 Hour Hold: 96 Hour Involuntary Admission: No 96 Hour Hold Ending Date: 03/25/19 96 Hour Hold Ending Time: 23:30 Attestations NPU Medical Necessity Statement*: Inpatient hospitalization is medically necessary and the clinically appropriate intervention at this time.? We will monitor medications, administer a long-acting injectable and monitor for improvement.? Likely length of stay 3-5 days. Coding Level of Care Code Acute Crusher [employer] Mica for Hao Fwd Diagnoses Psychosis F29 Abdominal pain R10.11 Abdominal location: right upper quadrant Cough R05 Methamphetamine use disorder, severe, in early remission F15.21 Obesity (BMI 30.0-34.9) E66.9 Cluster B personality disorder F60.89 Schizophrenia F20.9
[2021-04-25 14:00] VITALS: RESP 17
[2021-04-25 20:35] VITALS: BP 134/84; PULSE 68; RESP 16; TEMP 36.3; O2SAT 99
[2021-04-26 06:00] VITALS: BP 109/65; PULSE 75; RESP 16; TEMP 36.4; O2SAT 98
--- NOTE | 2021-04-26 11:21 | P.NPUPN_ITS ---
Subjective NPU Subjective: He and his state that he is doing significantly better. He denies having any of the psychotic thoughts that he had on presentation. He said that he was isolating himself and did not want to talk with his family. He said that he was thinking about leaving his and children. He denies any close thoughts that he misses his and children. He says that he understands the importance of staying on the medication and staying away from drugs. He denies any auditory or visual hallucinations. Mental Status Exam MSE Comments: This is an overweight white male in hospital scrubs on with adequate grooming and good eye contact. No abnormal movements except for mild psychomotor retardation.? Cooperative with exam in mild distress.? Speech was decreased rate and volume.? Mood described as okay, affect guarded.? Thought process linear.? Thought content: Patient denied suicidal or homicidal ideations, there were no delusions reported, and not apparent paranoia, he denied any auditory or visual hallucinations.? Attention and concentration were improving and memory seems more reliable but none were formally tested.? He is alert and oriented ?3.? Insight and judgment and impulse control are impaired. Cognition: Patient Appearance: Appropriate Level of Consciousness: Alert and Lethargic Patient Cognition Impaired: No Ability to Follow Directions: Fair Patient Orientation (long list): Person, Place, Name, Age and Birthday Comprehension Ability: Moderate Impairment Hallucination Type: None Delusion Description: Not Present Thought Process: Loose Associations Affect: Affect Description: Appropriate and Flat Depressive Symptoms: Isolating Oneself From Friends and Family and Unhappiness Behavior: Patient Behavior: Appropriate and Cooperative Speech Pattern: Appropriate and Clear Vitals/I&O/Wt Last Vital Signs Temp 97.5 F L 04/26/21 06:00 Pulse 75 04/26/21 06:00 Resp 16 04/26/21 06:00 BP 109/65 04/26/21 06:00 Pulse Ox 98 04/26/21 06:00 Data NPU : 04/23/21 17:25 04/23/21 17:25 A&P Assessment and plan (1) Psychosis: Status: Acute (2) Abdominal pain: Status: Acute Qualifiers: Abdominal location: right upper quadrant Qualified Code(s): R10.11 - Right upper quadrant pain (3) Cough: Status: Acute (4) Methamphetamine use disorder, severe, in early remission: Status: Acute (5) Obesity (BMI 30.0-34.9): Status: Acute (6) Cluster B personality disorder: Status: Acute (7) Schizophrenia: Status: Acute Plan This is a 25-year-old white male with a long history of significant addiction and psychosis with more indication of a possible baseline schizophrenia growing as he presents with significant psychosis having been taken off his previously effective antipsychotic in part due to concerns that he only had substance- induced psychosis and some hyperprolactinemia likely. 1.? Continue current medication.? We restarted his Invega with a 234 mg IM injection to the deltoid to be followed by the 156 mg injection to the deltoid next week as loading doses, however we will likely maintain at the lowest dose of 78 mg or possibly 1 higher and monitor his prolactin level to see if we can reduce the side effect but keep the great success he had on Invega. 2.? Continue every 15 minute checks for safety. 3.? Encourage individual, group and milieu therapies. 4.? Encourage sober living treatment after discharge at the highest level of care to which he is willing to commit.? Noteworthy that his UDS was positive for cannabis only. Involuntary Hold Information 96 Hour Hold: 96 Hour Involuntary Admission: No 96 Hour Hold Ending Date: 03/25/19 96 Hour Hold Ending Time: 23:30 Attestations NPU Medical Necessity Statement*: Inpatient hospitalization is medically necessary and the clinically appropriate intervention at this time. We will initiate medications and make changes as indicated. 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
[2021-04-26 14:00] VITALS: BP 150/81; PULSE 76; RESP 17; TEMP 36.2; O2SAT 97
[2021-04-26 19:00] VITALS: BP 138/92; PULSE 102; RESP 16; TEMP 36.5; O2SAT 98
[2021-04-27 06:57] VITALS: BP 138/91; PULSE 83; RESP 18; TEMP 36.3; O2SAT 98
--- NOTE | 2021-04-27 10:19 | P.NPUDS_ITS ---
Diagnoses at Discharge Discharge Diagnosis (1) Psychosis: Status: Acute (2) Abdominal pain: Status: Acute Qualifiers: Abdominal location: right upper quadrant Qualified Code(s): R10.11 - Right upper quadrant pain (3) Cough: Status: Acute (4) Methamphetamine use disorder, severe, in early remission: Status: Acute (5) Obesity (BMI 30.0-34.9): Status: Acute (6) Cluster B personality disorder: Status: Acute (7) Schizophrenia: Status: Acute Reason for Visit Reason for Visit: Mental Evaluation Brief History: HPI: [25]yo patient w/ hx of bipolar disorder presenting for acute psychosis and inabiltiy to take care of self. Patient was recently started on medicine for his psychotic outbreaks. However the medicine has not done much. Patient was then told to go to the emergency room for mood stabilization. Per patient's father, patient has been running around the house without wearing close and does not want to do anything. On arrival, the patient is AAOx3 and cooperative with my evaluation. No focal complaints of chest pain, shortness of breath, palpitations, N/V, focal GI/ complaints. Currently denies SI/HI. No complaints of hallucinations. Onset: acute Duration: ongoing Location: home Severity: severe Associated symptoms: Deny chest pain, dyspnea, nausea, rash, palpitations or vomiting He was admitted to the neuropsychiatric unit for definitive treatment of those issues.? Patient presents today accompanied by his reporting significant decompensation.? According to them he started going to [facility] and saw a therapist who and 's memory specifically told him that he had substance-induced psychosis and therefore did not need the medication and the medication was actually causing the problem.? He is that along with some side effects that he was receiving likely hyperprolactinemia from the medication to discontinue medication and he has been on a slow descent since then.? He has resumed his psychotic symptoms with paranoia which is significant and likely auditory hallucinations.? 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 They deny any other significant changes.? We discussed the risk-benefit alternatives of restarting the Invega with which he had such significant success but exploring if he would be able to manage the injection at a much lower dose without the elevated prolactin and they understood and agreed to proceed as is documented in his note.? We also got a baseline prolactin so that we could follow that as an indicator of side effect. Hospital Course Hospital Course He slowly acclimated to the individual, group and milieu therapies provided. He was given an injection of Invega Sustenna 256 mg. He is due for another injection on April 30 and would recommend 78 mg because he has had breast swelling from higher doses. Then monthly injections of 78 mg. He tolerated these doses and showed steady improvement during his stay. He was able to contract for safety outside hospital prior to discharge. During the hospitalization, patient had routine laboratory studies which were within normal limits except for few outliers. Additionally there was a general medical evaluation which was also within normal limits and revealed no new acute processes. Discharge Summary: At the time of discharge, lethality was denied and psychosis was resolving. He and his family felt that he was back to baseline. He says that he feels the shot is working better at this time and agrees to continue taking it. Mood and anxiety were well managed. Patient endorsed a plan to follow-up with the aftercare recommendations of the treatment team. Patient was evaluated and deemed to be absent credible lethality, and had achieved the maximum benefit from an inpatient hospitalization, so was discharged. Involuntary Hold Information 96 Hour Hold: 96 Hour Involuntary Admission: No 96 Hour Hold Ending Date: 03/25/19 96 Hour Hold Ending Time: 23:30 Mental Status Exam MSE Comments: This is an overweight white male in hospital scrubs on with adequate grooming and good eye contact. No abnormal movements except for mild psychomotor retardation.? Cooperative with exam in mild distress.? Speech was decreased rate and volume.? Mood described as okay, affect guarded.? Thought process linear.? Thought content: Patient denied suicidal or homicidal ideations, there were no delusions reported, and not apparent paranoia, he denied any auditory or visual hallucinations.? Attention and concentration were improving and memory seems more reliable but none were formally tested.? He is alert and oriented ?3.? Insight and judgment and impulse control are impaired. Cognition: Patient Appearance: Appropriate Level of Consciousness: Alert and Lethargic Patient Cognition Impaired: No Ability to Follow Directions: Fair Patient Orientation (long list): Person, Place, Name, Age and Birthday Comprehension Ability: Moderate Impairment Hallucination Type: None Delusion Description: Not Present Thought Process: Loose Associations Affect: Affect Description: Appropriate and Flat Depressive Symptoms: Isolating Oneself From Friends and Family and Unhappiness Behavior: Patient Behavior: Appropriate, Cooperative and Withdrawn Speech Pattern: Clear and Delayed Discharge Data Studies Completed and Pending: Laboratory Results WBC 5.8 10^3/uL (4.0- 10.0) 04/23/21 17:25 RBC 5.25 10^6/uL (4.1 -5.3) 04/23/21 17:25 Hgb 15.6 g/dL (11.7-1 6.6) 04/23/21 17:25 Hct 45.5 % (42.0-52.0 ) 04/23/21 17: MCV 86.7 fl (80-94) 04/23/21 17: MCH 29.7 pg (28.0-34. 0) 04/23/21 17: MCHC 34.3 g/dL (30.0-3 6.0) 04/23/21 17: RDW 11.4 % (12.1-15.1 ) L 04/23/21 17: Plt Count 250 10^3/cmm (130 -400) 04/23/21 17: MPV 10.1 fL (7.4-10.4 ) 04/23/21 17:25 Neut % (Auto) 65.5 % 04/23/21 17:25 Lymph % (Auto) 26.4 % 04/23/21 17:25 [place] % (Auto) 6.4 % 04/23/21 17:25 Eos % (Auto) 0.7 % 04/23/21 17:25 Baso % (Auto) 0.7 % 04/23/21 17:25 Neut # (Auto) 3.79 10^3/uL (1.8 -7.7) 04/23/21 17:25 Lymph # (Auto) 1.5 10^3/uL (0.8- 4.8) 04/23/21 17:25 Carolina # (Auto) 0.4 10^3/uL (0.2- 0.9) 04/23/21 17:25 Eos # (Auto) 0.0 10^3/uL (0.0- 0.8) 04/23/21 17:25 Baso # (Auto) 0.0 10^3/uL (0.0- 0.1) 04/23/21 17:25 Nucleated RBC % (a uto) 0 % 04/23/21 17:25 Nucleated RBCs # 0.0 /100WBC 04/23/21 17:25 Sodium 141 mmol/L (136-1 45) 04/23/21 17:25 Potassium 3.8 mmol/L (3.5-5 .1) 04/23/21 17:25 Chloride 104 mmol/L (98-10 7) 04/23/21 17:25 Carbon Dioxide 24 mmol/L (22-29) 04/23/21 17:25 Anion Gap 16.8 (5-19) 04/23/21 17:25 BUN 14 mg/dL (6-20) 04/23/21 17:25 Creatinine 0.8 mg/dL (0.7-1. 2) 04/23/21 17:25 GFR Calculation 116.9 mL/min (90- 130) 04/23/21 17:25 Glucose 127 mg/dL (65-115 ) H 04/23/21 17:25 Calculated Osmolal ity 294 mOsm/kg (285- 295) 04/23/21 17:25 Calcium 9.9 mg/dL (8.5-10 .5) 04/23/21 17:25 TSH 0.36 uIU/mL (0.27 -4.20) 04/23/21 17:25 Free T4 1.66 ng/dL (0.82- 1.77) 04/23/21 17:25 Prolactin 8.00 ng/mL (4.0-1 5.2) 04/23/21 17:25 Salicylates < 0.3 mg/dL (3-10 ) L 04/23/21 17:25 Urine Opiates Scre en Negative ng/mL (N egative) 04/23/21 17:20 Acetaminophen < 5.0 ug/mL (10-3 0) L 04/23/21 17:25 Ur Barbiturates Sc reen Negative ng/mL (N egative) 04/23/21 17:20 Ur Phencyclidine S crn Negative ng/mL (N egative) 04/23/21 17:20 Ur Amphetamines Sc reen Negative ng/mL (N egative) 04/23/21 17:20 U Benzodiazepines Scrn Negative ng/mL (N egative) 04/23/21 17:20 Urine Cocaine Scre en Negative ng/mL (N egative) 04/23/21 17:20 U Marijuana (THC) Screen Positive ng/mL (N egative) H 04/23/21 17:20 Vitals: Last Vital Signs Temp 97.4 F L 04/27/21 06:57 Pulse 83 04/27/21 06:57 Resp 18 04/27/21 06:57 BP 138/91 04/27/21 06:57 Pulse Ox 98 04/27/21 06:57 Discharge Plan Discharge Patient Disposition: Home Condition: Stable Prescriptions: Discontinued quetiapine 100 mg tablet 300 mg PO BEDTIME 0RF Rx Instructions: 50mg po bedtime for 2 days, 100mg po bedtime for 2 days, 200mg po bedtime for 2 days and then 300mg po bedtime Discharge Orders: Discharge Order (Routine); Ordered 04/27/21 Ordered By: Bob Chirinos Referrals: Al Rincon [Primary Care Provider] - Discharge Diet: Regular Discharge Activity: Resume usual activity Patient Instructions: Opioid Safety Discharge Attestations NPU Time Spent in Discharge Care*: less than 30 min Specific Discharge Activities: Specific discharge activities: educating patient, discussing with wrapper caser/social workers/dc planners, documenting/other paperwork and evaluating patient/reviewing data Coding Level of Care Code Acute Chg FW DC note Diagnoses Psychosis F29 Abdominal pain R10.11 Abdominal location: right upper quadrant Cough R05 Methamphetamine use disorder, severe, in early remission F15.21 Obesity (BMI 30.0-34.9) E66.9 Cluster B personality disorder F60.89 Schizophrenia F20.9
[2021-04-27 10:30] VITALS: BP 138/91; PULSE 83; RESP 18; TEMP 36.3; O2SAT 98
== END 2021-04-27 13:07 | disposition home or self-care (01) | DRG 885 ==
LOC: ER 18:24 → NP 04-24 06:01
PROVIDERS: Admitting Provider Psychiatry & Neurology Psychiatry; Emergency Provider Emergency Medicine; PCP Physician Assistant Medical; Visit Provider Psychiatry & Neurology Psychiatry
DX: F20.9 Schizophrenia, unspecified (principal); F15.11 Other stimulant abuse, in remission; E66.9 Obesity, unspecified; Z68.34 Body mass index [BMI] 34.0-34.9, adult; Z87.891 Personal history of nicotine dependence; F60.89 Other specific personality disorders
CPT/HCPCS: 80048; 80306; 80307; 84146; 84439; 84443; 85025; 96372; 97165; 99285

== ENCOUNTER → 2021-04-30 08:17 | Outpatient (BNVA) | payer MEDICAID, SELFPAY | PROVIDERS: PCP Physician Assistant Medical; Visit Provider Nurse Practitioner | DX: F20.9 Schizophrenia, unspecified (principal); F15.21 Other stimulant dependence, in remission | CPT/HCPCS: 90792 ==

== ENCOUNTER → 2021-05-28 12:42 | Outpatient (BNVA) | payer MEDICAID, SELFPAY | PROVIDERS: PCP Physician Assistant Medical; Visit Provider Nurse Practitioner | DX: F20.9 Schizophrenia, unspecified (principal); F15.21 Other stimulant dependence, in remission | CPT/HCPCS: 99214 ==

== ENCOUNTER → 2021-06-25 12:51 | Outpatient (BNVA) | payer MEDICAID, SELFPAY | PROVIDERS: PCP Physician Assistant Medical; Visit Provider Nurse Practitioner | DX: F20.9 Schizophrenia, unspecified (principal); F15.21 Other stimulant dependence, in remission; F12.20 Cannabis dependence, uncomplicated | CPT/HCPCS: 96372; 99214 ==

== ENCOUNTER → 2021-07-20 13:58 | Outpatient (BNVA) | payer MEDICAID, SELFPAY | PROVIDERS: PCP Physician Assistant Medical; Visit Provider Nurse Practitioner | DX: F20.9 Schizophrenia, unspecified (principal); F12.20 Cannabis dependence, uncomplicated; F15.21 Other stimulant dependence, in remission | CPT/HCPCS: 96372; 99214 ==

== ENCOUNTER 2024-02-01 10:46 | Emergency (ER) | payer MEDICAID, SELFPAY ==
[2024-02-01 10:56] VITALS: BP 114/67; PULSE 58; RESP 16; TEMP 36.7; O2SAT 97; BMI 37.5
[2024-02-01 11:08] VITALS: BP 121/59; PULSE 89; O2SAT 96
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
--- NOTE | 2024-02-01 11:29 | ECG_ITS ---
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 Measurements Intervals [place] Rate: 62 P: 50 DE: 149 QRS: 72 QRSD: 86 T: 62 QT: 409 QTc: 415 Interpretive Statements SINUS RHYTHM Compared to ECG 03/21/2019 02:47:55 No significant changes Electronically Signed On 02-01-2024 22:29:23 [employer]ID FIBER PASTER OPERATOR by Peter Daniel M.[email or web address]
[2024-02-01] MEDS: ketorolac 60 mg/2 mL INJ IM (11:32)
[2024-02-01] MEDS: methocarbamol 750 mg Tablet 1500 MG PO (11:32)
[2024-02-01 12:08] VITALS: BP 131/72; PULSE 53; O2SAT 97
[2024-02-01 12:31] LABS: Bilirubin Urine Negative (Negative); Blood Urine Negative (Negative); Glucose Urine UA Negative (Normal); Ketones Urine Negative (Negative); Leukocyte Esterase Urine Negative (Negative); Nitrate Urine Negative (Negative); Protein Urine Negative (Negative); Urine Appearance Clear (CLEAR); Urine Color Yellow (Yellow)
[2024-02-01 12:36] LABS: Add Urine Microscopic? YES; Bacteria Urine None Seen /hpf; Hyaline Casts Urine 0-4 /lpf; RBC Urine 0-2 /hpf (0-2); Squamous Epithelial Cell Urine 0-5 /hpf (0-5); WBC Urine 0-5 /hpf (0-5)
[2024-02-01 12:59] VITALS: BP 119/53; PULSE 47; O2SAT 97
[2024-02-01 13:06] VITALS: BP 126/56; PULSE 69; O2SAT 97
== END 2024-02-01 13:08 | disposition home or self-care (01) ==
PROVIDERS: Emergency Provider Emergency Medicine; PCP Physician Assistant Medical
DX: S39.012A Strain of muscle, fascia and tendon of lower back, initial encounter (principal); V89.2XXA Person injured in unspecified motor-vehicle accident, traffic, initial encounter; Z87.891 Personal history of nicotine dependence
CPT/HCPCS: 71101; 72100; 73010; 73030; 81001; 93005; 96372; 99284; J1885